=== PATIENT | male | born 1980 | race Caucasian/White ===

== ENCOUNTER 2018-06-12 14:58 | Inpatient (IN) | payer MEDICARE, OTHER ==
[2018-06-12] MEDS ORDERED: SODIUM CHLORIDE 0.9% 1,000 ML IV STA (15:30)
--- NOTE | 2018-06-12 15:40 | ED ---
General Adult HPI - General Chief complaint: Nausea/Vomiting/Diarrhea Stated complaint: diabetic/vomiting Time Seen by Provider: 06/12/18 15:26 Source: patient Mode of arrival: ambulatory Limitations: no limitations - History of Present Illness Initial comments: 37 year old male with history of diabetes type 1, HTN, renal disease presenting today for chief complaint of vomiting. He states he has not checked his sugar in 2 days. He states his symptoms are similar to when he has had DKA in the past. Patient states he has had cough congestion for the past 2-3 weeks. Denies recent fever within last week. States cough has been subsiding. He denies a chest pain shortness of breath. Patient denies diarrhea melena hematochezia, hematemesis, denies any significant abdominal pain. Remaining ROS (-), patient denies any back pain, numbness or tingling, dysuria or hematuria, constipation, headaches or visual changes, or any other complaints. Upon arrival pt appears well, did have episode of vomiting in waiting room. pt denies alcohol use. - Related Data Home Medications Medication Instructions Recorded Confirmed Unable To Assess [Unable to Assess] 09/07/15 09/07/15 Allergies Allergy/AdvReac Type Severity Reaction Status Date / Time Unable to Assess Allergy Verified 09/07/15 23:55 Review of Systems ROS Statement: Those systems with pertinent positive or pertinent negative responses have been documented in the HPI. ROS Other: All systems not noted in ROS Statement are negative. Past Medical History Past Medical History: Diabetes Mellitus, Hypertension, Renal Disease History of Any Multi-Drug Resistant Organisms: None Reported Past Surgical History: Joint Replacement, Orthopedic Surgery Additional Past Surgical History / Comment(s): spinal sx, pelvis sx Past Psychological History: No Psychological Hx Reported Smoking Status: Never smoker Past Alcohol Use History: None Reported Past Drug Use History: None Reported General Exam - General Exam Comments Initial Comments: General: The patient is awake and alert, in no distress Eye: Pupils are equal, round and reactive to light, extra-ocular movements are intact. No nystagmus. There is normal conjunctiva bilaterally. No signs of icterus. Ears, nose, mouth and throat: There are moist mucous membranes and no oral lesions. Neck: The neck is supple, there is no tenderness or JVD. Cardiovascular: There is a regular rate and rhythm. No murmur, rub or gallop is appreciated. Respiratory: Lungs are clear to auscultation, respirations are non-labored, breath sounds are equal. No wheezes, stridor, rales, or rhonchi. Gastrointestinal: Soft, non-distended, non-tender abdomen without masses or organomegaly noted. There is no rebound or guarding present. No CVA tenderness. Bowel sounds are unremarkable. Musculoskeletal: Normal ROM, no tenderness. Strength 5/5. Sensation intact. Pulses equal bilaterally 2+. Neurological: A&O x 3. CN II-XII intact, There are no obvious motor or sensory deficits. Coordination appears grossly intact. Speech is normal. Skin: Skin is warm and dry and no rashes or lesions are noted. Psychiatric: Cooperative, appropriate mood & affect, normal judgment. Limitations: no limitations Course Vital Signs 06/12/18 06/12/18 15:17 17:31 Temperature 98.3 F 99 F Pulse Rate 114 H 100 Respiratory 18 18 Rate Blood Pressure 202/115 177/93 O2 Sat by Pulse 98 99 Oximetry Medical Decision Making - Medical Decision Making 37yo female presenting today for chief complaint of vomiting. Patient states he is a type I diabetic insulin-dependent. Patient does not take a blood glucose of 2 days. Patient is concerned about DKA. Laboratory studies reveal elevated blood glucose, positive acetone and ketones in urine. No anion gap. Sugar >500. Pt given insulin bolus, placed on DKA protocol. Pt appears well. No signs of acute distress. I discussed case with attending provider Dr. Martinez who reviewed laboratory studies. He contacted admitting provider and was agreeable with patient care plan and admission. Discussed findings with patient patient is agreeable to admission, all questions were answered to the best mobility. Patient was transferred to the floor in stable condition. - Lab Data Result diagrams: 06/12/18 15:45 06/12/18 15:45 Lab Results 06/12/18 06/12/18 Range/Units 15:45 15:45 WBC 6.5 (3.8-10.6) k/uL RBC 4.24 L (4.30-5.90) m/uL Hgb 12.6 L (13.0-17.5) gm/dL Hct 38.1 L (39.0-53.0) % MCV 89.7 (80.0-100.0) fL MCH 29.8 (25.0-35.0) pg MCHC 33.2 (31.0-37.0) g/dL RDW 13.7 (11.5-15.5) % Plt Count 268 (150-450) k/uL Neutrophils % 81 % Lymphocytes % 13 % Monocytes % 4 % Eosinophils % 1 % Basophils % 1 % Neutrophils # 5.2 (1.3-7.7) k/uL Lymphocytes # 0.8 L (1.0-4.8) k/uL Monocytes # 0.3 (0-1.0) k/uL Eosinophils # 0.1 (0-0.7) k/uL Basophils # 0.0 (0-0.2) k/uL Sodium 133 L (137-145) mmol/L Potassium 4.7 (3.5-5.1) mmol/L Chloride 105 (98-107) mmol/L Carbon Dioxide 16 L (22-30) mmol/L Anion Gap 12 mmol/L BUN 41 H (9-20) mg/dL Creatinine 2.57 H (0.66-1.25) mg/dL Est GFR (CKD-EPI)AfAm 36 (>60 ml/min/1.73 sqM) Est GFR (CKD-EPI)NonAf 31 (>60 ml/min/1.73 sqM) Glucose 481 H (74-99) mg/dL Calcium 8.9 (8.4-10.2) mg/dL Phosphorus 4.3 (2.5-4.5) mg/dL Magnesium 1.8 (1.6-2.3) mg/dL Total Bilirubin 0.5 (0.2-1.3) mg/dL AST 16 L (17-59) U/L ALT 23 (21-72) U/L Alkaline Phosphatase 107 (38-126) U/L Total Protein 5.2 L (6.3-8.2) g/dL Albumin 2.7 L (3.5-5.0) g/dL Amylase 56 (30-110) U/L Lipase 46 (23-300) U/L Acetone, Qual Positive (Negative) Disposition Clinical Impression: DKA (diabetic ketoacidoses), Vomiting, Hyponatremia, ZEHRA (acute kidney injury), History of renal disease Disposition: ADMITTED IP TO THIS HOSP Condition: Stable Is patient prescribed a controlled substance at d/c from ED?: No Time of Disposition: 17:09 Decision to Admit Reason: Admit from EC Decision Date: 06/12/18 Decision Time: 17:09
[2018-06-12] MEDS ORDERED: ONDANSETRON 4 MG/2 ML VIAL IVP STA (15:59)
[2018-06-12 16:16] LABS: Basophils % (A) 1 %; Eosinophils # (A) 0.1 k/uL (0-0.7); Eosinophils % (A) 1 %; HCT 38.1 % (39.0-53.0); HGB 12.6 gm/dL (13.0-17.5); Lymphocytes # (A) 0.8 k/uL (1.0-4.8); Lymphocytes % (A) 13 %; MCH 29.8 pg (25.0-35.0); MCHC 33.2 g/dL (31.0-37.0); MCV 89.7 fL (80.0-100.0); Mean Platelet Volume 7.4; Monocytes # (A) 0.3 k/uL (0-1.0); Monocytes % (A) 4 %; Neutrophils # (A) 5.2 k/uL (1.3-7.7); Neutrophils % (A) 81 %; Platelet Count 268 k/uL (150-450); RBC 4.24 m/uL (4.30-5.90); RDW 13.7 % (11.5-15.5); WBC 6.5 k/uL (3.8-10.6)
--- NOTE | 2018-06-12 16:21 | XR ---
EXAMINATION TYPE: XR KUB DATE OF EXAM: 06/12/2018 COMPARISON: 01/05/2009 HISTORY: Nausea and vomiting TECHNIQUE: 2 views upright FINDINGS: Bowel gas pattern is normal. There is no sign of intestinal obstruction or pneumoperitoneum . Fecal pattern is normal. There is surgery at the sacrum and iliac crests. There are no pathologic c alcifications over the kidneys. Lung bases are clear. IMPRESSION: Nonacute abdomen.
[2018-06-12 16:26] LABS: ALT 23 U/L (21-72); AST 16 U/L (17-59); Albumin 2.7 g/dL (3.5-5.0); Alkaline Phosphatase 107 U/L (38-126); Amylase 56 U/L (30-110); Anion Gap 12 mmol/L; Blood Urea Nitrogen 41 mg/dL (9-20); Calcium 8.9 mg/dL (8.4-10.2); Carbon Dioxide 16 mmol/L (22-30); Chloride 105 mmol/L (98-107); Glucose 481 mg/dL (74-99); Lipase 46 U/L (23-300); Magnesium 1.8 mg/dL (1.6-2.3); Phosphorus 4.3 mg/dL (2.5-4.5); Potassium 4.7 mmol/L (3.5-5.1); Sodium 133 mmol/L (137-145); Total Bilirubin 0.5 mg/dL (0.2-1.3); Total Protein 5.2 g/dL (6.3-8.2)
[2018-06-12] MEDS ORDERED: INSULIN REGULAR BOLUS (FROM DRIP BAG) IV ONE (16:28)
[2018-06-12] MEDS ORDERED: SODIUM CHLORIDE 0.9% 1,000 ML IV SCH (16:30)
[2018-06-12] MEDS ORDERED: NALOXONE 0.4 MG/ML 1 ML VIAL IV PRN (16:53)
[2018-06-12] MEDS ORDERED: HYDROcodone/APAP 5-325MG 1 EACH TAB PO PRN (16:53)
[2018-06-12] MEDS ORDERED: ACETAMINOPHEN TAB 325 MG TAB PO PRN (16:53)
[2018-06-12 17:00] LABS: Amorphous Sediment,Urine Rare /hpf; Appearance,Urine Clear (Clear); Bacteria,Urine Rare /hpf; Bilirubin,Urine Negative (Negative); Blood,Urine Small (Negative); Color,Urine Light Yellow; Glucose,Urine (UA) 4+ (Negative); Granular Casts,Urine 4 /lpf (0); Hyaline Casts,Urine 31 /lpf (0-2); Ketones,Urine 1+ (Negative); Leukocyte Esterase,Urine Negative (Negative); Mucus,Urine Rare /hpf; Nitrite,Urine Negative (Negative); Protein,Urine 3+ (Negative); RBC,Urine 2 /hpf (0-5); Specific Gravity,Urine 1.018 (1.001-1.035); Squamous Epithelial Cell,Urine <1 /hpf (0-4); Urobilinogen,Urine <2.0 mg/dL (<2.0); WBC,Urine 1 /hpf (0-5)
[2018-06-12] MEDS: INSULIN REGULAR 100 UNIT in SODIUM CHLORIDE 0.9% 100 ML IV SCH ×2 (17:03→19:04)
[2018-06-12 17:08] LABS: VBG PH 7.42 (7.31-7.41)
[2018-06-12] MEDS ORDERED: 0.45% NACL WITH KCL 20 MEQ/L 1,000 ML IV SCH (17:30)
[2018-06-12 18:13] LABS: Glucose,Whole Blood 282 mg/dL (75-99)
--- NOTE | 2018-06-12 18:59 | P.HPIM ---
History of Present Illness H&P Date: 06/12/18 Chief Complaint: Nausea and vomiting 37-year-old male with PMH of type 1 diabetes mellitus on insulin, CKG, hypertension, hyperlipidemia presents the ED for nausea and vomiting. Patient reports feeling unwell over the past 1 month. He reports that he wakes up with nausea on a daily basis, which improved throughout the day. He does endorse occasional nonbilious and nonbloody vomiting. Patient also reports cough productive of yellow sputum along with rhinorrhea that has been ongoing for the past 2-1/2 weeks. Patient reports that his cough and nausea, vomiting has been progressively getting worse. Yesterday he took DayQuil, some cough syrup and 2 Nyquils prior to going to bed. Patient reports waking up with a hacking cough and with multiple episodes of nausea and vomiting which prompted him to come to the ED. Of note, patient reports being diagnosed with type 1 diabetes mellitus since the age of 16. He has been on Toujeo 40 units in the morning and endorses c ompliance. Patient reports having a diet that is unhealthy, full of junk food and fried fish. Patient reports being released from group home one year ago, he was told that he has kidney disease with 50% renal function. Patient denies any headache, fever or chills, chest pain, palpitations, changes in urination or bowel habits. He does report a decreased appetite and intermittent lower extremity swelling that in the is alleviated with lower extremity elevation. In the ED, CBC showed anemia with hemoglobin of 12.6. VBG showed pH of 7.42. CMP showed a sodium of 133, bicarbonate of 16, BUN of 41 and creatinine of 2.57. Blood glucose was 481. Urinalysis showed 3+ protein, 4+ glucose, 1+ ketone. He was acetone positive. Patient is admitted for DKA. Review of Systems All other review of systems reviewed and is negative except for what is present in the HPI. All systems: negative Past Medical History Past Medical History: Diabetes Mellitus, Hypertension, Renal Disease History of Any Multi-Drug Resistant Organisms: None Reported Past Surgical History: Joint Replacement, Orthopedic Surgery Additional Past Surgical History / Comment(s): spinal sx, pelvis sx Past Anesthesia/Blood Transfusion Reactions: No Reported Reaction Past Psychological History: No Psychological Hx Reported Smoking Status: Never smoker Past Alcohol Use History: None Reported Past Drug Use History: None Reported - Past Family History Father History Unknown: Yes Mother History Unknown: Yes Medications and Allergies Home Medications Medication Instructions Recorded Confirmed Type Unable To Assess [Unable to Assess] 09/07/15 09/07/15 History Allergies Allergy/AdvReac Type Severity Reaction Status Date / Time adhesive Allergy Intermediate Rash/Hives Verified 06/12/18 18:17 Physical Exam Vitals: Vital Signs Temp Pulse Pulse Resp BP BP Pulse Ox 06/12/18 17:44 97.5 F L 96 20 217/118 99 06/12/18 17:31 99 F 100 18 177/93 99 06/12/18 15:17 98.3 F 114 H 18 202/115 98 Intake and Output 06/12/18 06/12/18 06/12/18 06:59 14:59 22:59 Intake Total 211.255 Balance 211.255 Intake: IV 200 Sodium Chloride 0.9% 1, 200 000 ml @ 200 mls/hr IV . Q5H JENNIFER Rx#:[id number] Intake, IV Titration 11.255 Amount Insulin Regular 100 unit 11.255 In Sodium Chloride 0.9% 100 ml @ 0.1 UNITS/KG/HR 10.079 mls/hr IV .Q10H2M JENNIFER Rx#:[id number] Other: Weight 99.79 kg General: [non toxic], [no distress], [appears at stated age] Derm: [warm], [dry] Head: [atraumatic], [normocephalic], [symmetric] Eyes: [EOMI], [no lid lag], [anicteric sclera] Mouth: [no lip lesion], [mucus membranes moist] Cardiovascular: [S1S2 reg], [tachycardia], [positive posterior tibial pulse bilateral], Lungs: [CTA bilateral], [no rhonchi, no rales] , [no accessory muscle use] Abdominal: [soft], [ nontender to palpation], [no guarding], [no appreciable organomegaly] Ext: [no gross muscle atrophy], [1+ lower extremity edema], [no contractures] Neuro: [ CN II-XI grossly intact], [no focal neuro deficits] Psych: [Alert], [oriented], [appropriate affect] Results CBC & Chem 7: 06/12/18 15:45 06/12/18 15:45 Labs: Abnormal Lab Results - Last 24 Hours (Table) 06/12/18 06/12/18 06/12/18 Range/Units 15:45 15:45 16:50 RBC 4.24 L (4.30-5.90) m/uL Hgb 12.6 L (13.0-17.5) gm/dL Hct 38.1 L (39.0-53.0) % Lymphocytes # 0.8 L (1.0-4.8) k/uL VBG pH (7.31-7.41) VBG pCO2 (37-51) mmHg VBG HCO3 (24-28) mmol/L Sodium 133 L (137-145) mmol/L Carbon Dioxide 16 L (22-30) mmol/L BUN 41 H (9-20) mg/dL Creatinine 2.57 H (0.66-1.25) mg/dL Glucose 481 H (74-99) mg/dL POC Glucose (mg/dL) (75-99) mg/dL AST 16 L (17-59) U/L Total Protein 5.2 L (6.3-8.2) g/dL Albumin 2.7 L (3.5-5.0) g/dL Urine Protein 3+ H (Negative) Urine Glucose (UA) 4+ H (Negative) Urine Ketones 1+ H (Negative) Urine Blood Small H (Negative) Amorphous Sediment Rare H (None) /hpf Urine Bacteria Rare H (None) /hpf Hyaline Casts 31 H (0-2) /lpf Urine Mucus Rare H (None) /hpf 06/12/18 06/12/18 Range/Units 17:00 18:08 RBC (4.30-5.90) m/uL Hgb (13.0-17.5) gm/dL Hct (39.0-53.0) % Lymphocytes # (1.0-4.8) k/uL VBG pH 7.42 H (7.31-7.41) VBG pCO2 23 L (37-51) mmHg VBG HCO3 15 L (24-28) mmol/L Sodium (137-145) mmol/L Carbon Dioxide (22-30) mmol/L BUN (9-20) mg/dL Creatinine (0.66-1.25) mg/dL Glucose (74-99) mg/dL POC Glucose (mg/dL) 282 H (75-99) mg/dL AST (17-59) U/L Total Protein (6.3-8.2) g/dL Albumin (3.5-5.0) g/dL Urine Protein (Negative) Urine Glucose (UA) (Negative) Urine Ketones (Negative) Urine Blood (Negative) Amorphous Sediment (None) /hpf Urine Bacteria (None) /hpf Hyaline Casts (0-2) /lpf Urine Mucus (None) /hpf Thrombosis Risk Factor Assmnt - Choose All That Apply Any of the Below Risk Factors Present?: No Other Risk Factors: No Other congenital or acquired thrombophilia - If yes, enter type in comment: No Thrombosis Risk Factor Assessment Level: Very Low Risk Assessment and Plan Assessment: Assessment and Plan DKA Cough Acute kidney injury on chronic kidney disease Hypertension DVT and GI prophylaxis Probably due to medication noncompliance. Normal anion gap with bicarbonate of 16. Blood glucose 481. Given bolus of normal saline in the ED. Start insulin drip. Change fluids to half-normal saline with added potassium at 200 mL/h. Zofran for nausea or vomiting. Start Protonix IV daily. Hourly Accu-Cheks. Hypoglycemic precautions. BMP every 4 hours. Will change fluids to D5 half- normal saline when blood glucose nears 200. Transitioned to subcutaneous insulin when HCO3 is within normal limits. Follow A1c. Acute bronchitis versus pneumonia. Patient afebrile with no leukocytosis. Follow chest x-ray. BUN 41, creatinine 2.57. Patient previously been advised of CKD. This is likely secondary to uncontrolled diabetes and hypertension. Continue IVF at 200 mL/h. Daily BMP. Avoid nephrotoxins. Follow nephrology consult. BP 217/118. Continue Cardizem, Coreg. Monitor vitals, adjust medications as necessary. SCD boots. Protonix IV.
[2018-06-12 19:23] LABS: Glucose,Whole Blood 199 mg/dL (75-99)
[2018-06-12] MEDS: DILTIAZEM CD 120 MG CAP.ER.24H PO SCH (19:25)
[2018-06-12] MEDS: CARVEDILOL 6.25 MG TAB PO SCH (19:25)
--- NOTE | 2018-06-12 19:39 | XR ---
EXAMINATION TYPE: XR chest 1V DATE OF EXAM: 06/12/2018 COMPARISON: 09/08/2015 HISTORY: Cough TECHNIQUE: Single frontal view of the chest is obtained. FINDINGS: Heart and mediastinum are normal. Lungs are clear. Diaphragm is normal. Bony thorax appear s normal. IMPRESSION: Normal chest. No change.
[2018-06-12 20:03] LABS: Glucose,Whole Blood 145 mg/dL (75-99)
[2018-06-12] MEDS: D5-0.45% NACL WITH KCL 20MEQ/L 1,000 ML IV SCH (20:08)
[2018-06-12 20:19] LABS: Potassium 3.7 mmol/L (3.5-5.1)
[2018-06-12 21:20] LABS: Glucose,Whole Blood 109 mg/dL (75-99)
[2018-06-12 22:19] LABS: Glucose,Whole Blood 144 mg/dL (75-99)
[2018-06-12 22:59] LABS: Glucose,Whole Blood 134 mg/dL (75-99)
[2018-06-13 00:14] LABS: Glucose,Whole Blood 126 mg/dL (75-99)
[2018-06-13 00:47] LABS: Potassium 4.2 mmol/L (3.5-5.1)
[2018-06-13 01:12] LABS: Glucose,Whole Blood 119 mg/dL (75-99)
[2018-06-13] MEDS: guaiFENesin SYRUP 100MG/5ML 200 MG/10 ML CUP PO PRN ×2 (01:16→20:31)
[2018-06-13 02:10] LABS: Glucose,Whole Blood 128 mg/dL (75-99)
[2018-06-13] MEDS ORDERED: hydrALAZINE HCL 50 MG TAB PO STA ×2 (02:27→06:10)
[2018-06-13] MEDS: ONDANSETRON 4 MG/2 ML VIAL IVP PRN ×2 (02:49→09:32)
[2018-06-13] MEDS: D5-0.45% NACL WITH KCL 20MEQ/L 1,000 ML IV SCH (03:23)
[2018-06-13 06:15] LABS: Glucose,Whole Blood 100 mg/dL (75-99)
[2018-06-13] MEDS: INSULIN ASPART (NovoLOG) 100 UNIT/ML VIAL SQ SCH ×3 (06:54→16:59)
[2018-06-13] MEDS: CARVEDILOL 6.25 MG TAB PO SCH ×2 (06:59→17:14)
[2018-06-13] MEDS ORDERED: DEXTROSE 5%-0.9% NACL 1,000 ML IV SCH (08:30)
[2018-06-13] MEDS ORDERED: PANTOPRAZOLE 40 MG/10 ML VIAL IVP SCH (09:00)
[2018-06-13] MEDS: DILTIAZEM CD 120 MG CAP.ER.24H PO SCH (09:32)
[2018-06-13] MEDS: INSULIN DETEMIR (LEVEMIR) 100 UNIT/ML SYR SQ SCH (09:32)
--- NOTE | 2018-06-13 09:38 | P.NPCON ---
History of Present Illness - Reason for Consult acute renal failure, chronic renal failure - History of Present Illness Reason for consultation: Acute kidney injury on chronic kidney disease History of present illness: Patient is a 37-year-old male seen in renal consultation for acute kidney injury on chronic kidney disease. Unclear as to what his baseline function is. Creatinine in August 2015 was 1.8 and has been stable near 2.3 to 2.5 this admission. Patient presented to the hospital with nausea and vomiting going on for about 5 days prior to admission. Patient states he was diagnosed with diab etes 22 years ago. He has been taking insulin however does not monitor his blood sugars at home. On admission his blood sugar was over 400 as well as serum acetone being positive. Patient received IV fluids as well as insulin drip. He is currently off IV fluids. His blood sugar this morning was 115. He denies chest pain or shortness of breath. Hemodynamically stable. No cough. Good urine output. No hematuria or dysuria. Denies use of nonsteroidals. Patient's grandmother has chronic kidney disease stage IV and is being prepared for hemodialysis. 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 Vital signs are stable. General: The patient appeared well nourished and normally developed. HEENT: Head exam is unremarkable. Neck is without jugular venous distension. LUNGS: Lungs are clear to auscultation and percussion. Breath sounds decreased. HEART: Rate and Rhythm are regular. First and second heart sounds normal. No murmurs, rubs or gallops. ABDOMEN: Abdominal exam reveals normal bowel sounds. Non-tender and non- distended. No evidence of peritonitis. EXTREMITITES: No clubbing, cyanosis, or edema. Past Medical History Past Medical History: Diabetes Mellitus, Hypertension, Renal Disease History of Any Multi-Drug Resistant Organisms: None Reported Past Surgical History: Joint Replacement, Orthopedic Surgery Additional Past Surgical History / Comment(s): spinal sx, pelvis sx Past Anesthesia/Blood Transfusion Reactions: No Reported Reaction Past Psychological History: No Psychological Hx Reported Smoking Status: Never smoker Past Alcohol Use History: None Reported Past Drug Use History: None Reported - Past Family History Father History Unknown: Yes Mother History Unknown: Yes Medications and Allergies Home Medications Medication Instructions Recorded Confirmed Type Unable To Assess [Unable to Assess] 09/07/15 09/07/15 History Allergies Allergy/AdvReac Type Severity Reaction Status Date / Time adhesive Allergy Intermediate Rash/Hives Verified 06/12/18 18:17 Physical Exam Vitals: Vital Signs Temp Pulse Pulse Resp BP BP Pulse Ox 06/13/18 08:00 99 20 06/13/18 07:55 98.3 F 99 20 162/93 95 06/13/18 07:01 155/108 06/13/18 04:00 98.2 F 98 20 198/100 98 06/13/18 00:00 98.7 F 99 20 99 06/12/18 20:00 98 F 98 20 179/95 99 06/12/18 17:44 97.5 F L 96 20 217/118 99 06/12/18 17:31 99 F 100 18 177/93 99 06/12/18 15:17 98.3 F 114 H 18 202/115 98 Intake and Output 06/12/18 06/13/18 06/13/18 22:59 06:59 14:59 Intake Total 440.663 252.979 200 Balance 440.663 252.979 200 Intake: IV 200 Sodium Chloride 0.9% 1, 200 000 ml @ 200 mls/hr IV . Q5H JENNIFER Rx#:[id number] Intake, IV Titration 40.663 2.979 Amount Insulin Regular 100 unit 40.663 2.979 In Sodium Chloride 0.9% 100 ml @ 0.1 UNITS/KG/HR 10.079 mls/hr IV .Q10H2M JENNIFER Rx#:[id number] Oral 200 250 200 Other: # Voids 2 2 Weight 99.79 kg Results - Lab Results Most recent lab results Calcium 8.9 mg/dL (8.4-10.2) 06/12/18 15:45 Phosphorus 3.1 mg/dL (2.5-4.5) 06/13/18 00:07 Magnesium 1.8 mg/dL (1.6-2.3) 06/12/18 15:45 06/12/18 15:45 06/13/18 00:07 Assessment and Plan Plan: Assessment: 1. Chronic kidney disease stage III secondary to diabetic kidney disease. Creatinine in August 2015 was 1.8 and has been in the range of 2.3-2.5 this admission. ? ATN versus progression of underlying chronic kidney disease. 2. DKA. Resolved. 3. Insulin-dependent diabetes mellitus. Diagnosed over 20 years ago. 4. Hypertension with chronic kidney disease. 5. Metabolic acidosis secondary to chronic kidney disease. Plan: Encourage oral intake. Add oral sodium bicarbonate. Check renal ultrasound. Add amlodipine 5 mg daily. He will benefit from NICK inhibition once GFR stabilizes. Strongly advised patient to follow-up as an outpatient for chronic kidney disease care. Continue to monitor renal function and urine output. Thank you for the consultation. I will continue to follow the patient with you during his hospital stay.
[2018-06-13 10:28] LABS: Hemoglobin A1C 9.5 % (4.0-6.0)
[2018-06-13 11:06] VITALS: BMI 30.7
--- NOTE | 2018-06-13 11:57 | US ---
EXAMINATION TYPE: US kidneys/renal and bladder DATE OF EXAM: 06/13/2018 COMPARISON: CT CLINICAL HISTORY: earl. Patient stated is in fro diabetic ketoacidosis EXAM MEASUREMENTS: Right Kidney: 11.0 x 5.6 x 4.9 cm Left Kidney: 11.5 x 6.0 x 6.4 cm Post Void Residual Volume: not assessed on inpatient Right Kidney: No hydronephrosis or masses seen Left Kidney: No hydronephrosis or masses seen Bladder: wnl Bilateral Jets seen: yes Consider some urinary bladder wall thickening. Correlate for cystitis. IMPRESSION: Normal bilateral kidneys. 2. Some wall thickening of the urinary bladder is not excluded. Consider possibility of cystitis.
[2018-06-13 12:19] LABS: Glucose,Whole Blood 181 mg/dL (75-99)
[2018-06-13] MEDS: amLODIPine 5 MG TAB PO SCH (12:36)
[2018-06-13] MEDS: SODIUM BICARBONATE TAB 650 MG TAB PO SCH ×2 (12:36→20:31)
[2018-06-13] MEDS ORDERED: METOCLOPRAMIDE 5 MG/ML 2 ML VIAL IVP PRN (14:19)
[2018-06-13] MEDS ORDERED: METOCLOPRAMIDE 5 MG/ML 2 ML VIAL IVP STA (14:19)
--- NOTE | 2018-06-13 14:28 | P.PN ---
Subjective Progress Note Date: 06/13/18 Principal diagnosis: Uncontrolled diabetes Patient was seen and examined. No acute events overnight. Patient continues to report nausea but no vomiting. Patient states that he has an upset stomach. He denies any chest pain, shortness of breath or palpitations. Patient reports there are times when he eats he breaks out into sweats. Objective - Vital Signs Vital signs: Vital Signs Temp 98.2 F 06/13/18 12:00 Pulse 89 06/13/18 12:00 Resp 20 06/13/18 12:00 BP 170/88 06/13/18 12:00 Pulse Ox 98 06/13/18 12:00 Intake & Output 06/12/18 06/13/18 06/13/18 18:59 06:59 18:59 Intake Total 411.255 282.387 200 Balance 411.255 282.387 200 Weight 99.79 kg 99.79 kg Intake: IV 200 Sodium Chloride 0.9% 1, 200 000 ml @ 200 mls/hr IV . Q5H JENNIFER Rx#:[id number] Intake, IV Titration 11.255 32.387 Amount Insulin Regular 100 unit 11.255 32.387 In Sodium Chloride 0.9% 100 ml @ 0.1 UNITS/KG/HR 10.079 mls/hr IV .Q10H2M JENNIFER Rx#:[id number] Oral 200 250 200 Other: # Voids 2 2 - Exam General: [non toxic], [no distress], [appears at stated age] Derm: [warm], [dry] Head: [atraumatic], [normocephalic], [symmetric] Eyes: [EOMI], [no lid lag], [anicteric sclera] Mouth: [no lip lesion], [mucus membranes moist] Cardiovascular: [S1S2 reg], [regular rate], [positive posterior tibial pulse bilateral], Lungs: [CTA bilateral], [no rhonchi, no rales] , [no accessory muscle use] Abdominal: [soft], [mild tenderness to palpation of epigastric area without rebound], [no guarding], [no appreciable organomegaly] Ext: [no gross muscle atrophy], [no lower extremity edema], [no contractures] Neuro: [no focal neuro deficits] Psych: [Alert], [oriented], [appropriate affect] - Labs CBC & Chem 7: 06/12/18 15:45 06/13/18 00:07 Labs: Abnormal Lab Results - Last 24 Hours (Table) 06/12/18 06/12/18 06/12/18 Range/Units 15:45 15:45 16:50 RBC 4.24 L (4.30-5.90) m/uL Hgb 12.6 L (13.0-17.5) gm/dL Hct 38.1 L (39.0-53.0) % Lymphocytes # 0.8 L (1.0-4.8) k/uL VBG pH (7.31-7.41) VBG pCO2 (37-51) mmHg VBG HCO3 (24-28) mmol/L Sodium 133 L (137-145) mmol/L Chloride (98-107) mmol/L Carbon Dioxide 16 L (22-30) mmol/L BUN 41 H (9-20) mg/dL Creatinine 2.57 H (0.66-1.25) mg/dL Glucose 481 H (74-99) mg/dL POC Glucose (mg/dL) (75-99) mg/dL Hemoglobin A1c (4.0-6.0) % Phosphorus (2.5-4.5) mg/dL AST 16 L (17-59) U/L Total Protein 5.2 L (6.3-8.2) g/dL Albumin 2.7 L (3.5-5.0) g/dL Urine Protein 3+ H (Negative) Urine Glucose (UA) 4+ H (Negative) Urine Ketones 1+ H (Negative) Urine Blood Small H (Negative) Amorphous Sediment Rare H (None) /hpf Urine Bacteria Rare H (None) /hpf Hyaline Casts 31 H (0-2) /lpf Urine Mucus Rare H (None) /hpf 06/12/18 06/12/18 06/12/18 Range/Units 17:00 18:08 19:03 RBC (4.30-5.90) m/uL Hgb (13.0-17.5) gm/dL Hct (39.0-53.0) % Lymphocytes # (1.0-4.8) k/uL VBG pH 7.42 H (7.31-7.41) VBG pCO2 23 L (37-51) mmHg VBG HCO3 15 L (24-28) mmol/L Sodium (137-145) mmol/L Chloride (98-107) mmol/L Carbon Dioxide (22-30) mmol/L BUN (9-20) mg/dL Creatinine (0.66-1.25) mg/dL Glucose (74-99) mg/dL POC Glucose (mg/dL) 282 H 199 H (75-99) mg/dL Hemoglobin A1c (4.0-6.0) % Phosphorus (2.5-4.5) mg/dL AST (17-59) U/L Total Protein (6.3-8.2) g/dL Albumin (3.5-5.0) g/dL Urine Protein (Negative) Urine Glucose (UA) (Negative) Urine Ketones (Negative) Urine Blood (Negative) Amorphous Sediment (None) /hpf Urine Bacteria (None) /hpf Hyaline Casts (0-2) /lpf Urine Mucus (None) /hpf 06/12/18 06/12/18 06/12/18 Range/Units 19:46 19:46 19:46 RBC (4.30-5.90) m/uL Hgb (13.0-17.5) gm/dL Hct (39.0-53.0) % Lymphocytes # (1.0-4.8) k/uL VBG pH (7.31-7.41) VBG pCO2 (37-51) mmHg VBG HCO3 (24-28) mmol/L Sodium (137-145) mmol/L Chloride 111 H (98-107) mmol/L Carbon Dioxide 21 L (22-30) mmol/L BUN 40 H (9-20) mg/dL Creatinine 2.38 H (0.66-1.25) mg/dL Glucose 149 H (74-99) mg/dL POC Glucose (mg/dL) (75-99) mg/dL Hemoglobin A1c 9.5 H (4.0-6.0) % Phosphorus 2.4 L (2.5-4.5) mg/dL AST (17-59) U/L Total Protein (6.3-8.2) g/dL Albumin (3.5-5.0) g/dL Urine Protein (Negative) Urine Glucose (UA) (Negative) Urine Ketones (Negative) Urine Blood (Negative) Amorphous Sediment (None) /hpf Urine Bacteria (None) /hpf Hyaline Casts (0-2) /lpf Urine Mucus (None) /hpf 06/12/18 06/12/18 06/12/18 Range/Units 20:01 21:00 22:00 RBC (4.30-5.90) m/uL Hgb (13.0-17.5) gm/dL Hct (39.0-53.0) % Lymphocytes # (1.0-4.8) k/uL VBG pH (7.31-7.41) VBG pCO2 (37-51) mmHg VBG HCO3 (24-28) mmol/L Sodium (137-145) mmol/L Chloride (98-107) mmol/L Carbon Dioxide (22-30) mmol/L BUN (9-20) mg/dL Creatinine (0.66-1.25) mg/dL Glucose (74-99) mg/dL POC Glucose (mg/dL) 145 H 109 H 144 H (75-99) mg/dL Hemoglobin A1c (4.0-6.0) % Phosphorus (2.5-4.5) mg/dL AST (17-59) U/L Total Protein (6.3-8.2) g/dL Albumin (3.5-5.0) g/dL Urine Protein (Negative) Urine Glucose (UA) (Negative) Urine Ketones (Negative) Urine Blood (Negative) Amorphous Sediment (None) /hpf Urine Bacteria (None) /hpf Hyaline Casts (0-2) /lpf Urine Mucus (None) /hpf 06/12/18 06/13/18 06/13/18 Range/Units 22:58 00:02 00:07 RBC (4.30-5.90) m/uL Hgb (13.0-17.5) gm/dL Hct (39.0-53.0) % Lymphocytes # (1.0-4.8) k/uL VBG pH (7.31-7.41) VBG pCO2 (37-51) mmHg VBG HCO3 (24-28) mmol/L Sodium 135 L (137-145) mmol/L Chloride 113 H (98-107) mmol/L Carbon Dioxide 19 L (22-30) mmol/L BUN 41 H (9-20) mg/dL Creatinine 2.53 H (0.66-1.25) mg/dL Glucose 115 H (74-99) mg/dL POC Glucose (mg/dL) 134 H 126 H (75-99) mg/dL Hemoglobin A1c (4.0-6.0) % Phosphorus (2.5-4.5) mg/dL AST (17-59) U/L Total Protein (6.3-8.2) g/dL Albumin (3.5-5.0) g/dL Urine Protein (Negative) Urine Glucose (UA) (Negative) Urine Ketones (Negative) Urine Blood (Negative) Amorphous Sediment (None) /hpf Urine Bacteria (None) /hpf Hyaline Casts (0-2) /lpf Urine Mucus (None) /hpf 06/13/18 06/13/18 06/13/18 Range/Units 01:00 02:08 05:55 RBC (4.30-5.90) m/uL Hgb (13.0-17.5) gm/dL Hct (39.0-53.0) % Lymphocytes # (1.0-4.8) k/uL VBG pH (7.31-7.41) VBG pCO2 (37-51) mmHg VBG HCO3 (24-28) mmol/L Sodium (137-145) mmol/L Chloride (98-107) mmol/L Carbon Dioxide (22-30) mmol/L BUN (9-20) mg/dL Creatinine (0.66-1.25) mg/dL Glucose (74-99) mg/dL POC Glucose (mg/dL) 119 H 128 H 100 H (75-99) mg/dL Hemoglobin A1c (4.0-6.0) % Phosphorus (2.5-4.5) mg/dL AST (17-59) U/L Total Protein (6.3-8.2) g/dL Albumin (3.5-5.0) g/dL Urine Protein (Negative) Urine Glucose (UA) (Negative) Urine Ketones (Negative) Urine Blood (Negative) Amorphous Sediment (None) /hpf Urine Bacteria (None) /hpf Hyaline Casts (0-2) /lpf Urine Mucus (None) /hpf 06/13/18 Range/Units 11:41 RBC (4.30-5.90) m/uL Hgb (13.0-17.5) gm/dL Hct (39.0-53.0) % Lymphocytes # (1.0-4.8) k/uL VBG pH (7.31-7.41) VBG pCO2 (37-51) mmHg VBG HCO3 (24-28) mmol/L Sodium (137-145) mmol/L Chloride (98-107) mmol/L Carbon Dioxide (22-30) mmol/L BUN (9-20) mg/dL Creatinine (0.66-1.25) mg/dL Glucose (74-99) mg/dL POC Glucose (mg/dL) 181 H (75-99) mg/dL Hemoglobin A1c (4.0-6.0) % Phosphorus (2.5-4.5) mg/dL AST (17-59) U/L Total Protein (6.3-8.2) g/dL Albumin (3.5-5.0) g/dL Urine Protein (Negative) Urine Glucose (UA) (Negative) Urine Ketones (Negative) Urine Blood (Negative) Amorphous Sediment (None) /hpf Urine Bacteria (None) /hpf Hyaline Casts (0-2) /lpf Urine Mucus (None) /hpf Assessment and Plan Assessment: Assessment and Plan Nausea Hyperglycemia with uncontrolled diabetes Hyperchloremic metabolic acidosis Cough Acute kidney injury on chronic kidney disease Hypertension DVT and GI prophylaxis Possibility gastroparesis with GERD. Add Maalox and Reglan. Continue Zofran. Continue Protonix. Probably due to medication noncompliance. Normal anion gap with bicarbonate of 16 on admission. Blood glucose 481 on admission. Given bolus of normal saline in the ED. Insulin drip discontinued. Patient started on Levemir 10 units in the morning along with insulin sliding scale. Hourly Accu-Cheks. Hypoglycemic precautions. Follow A1c. Chloride 113, bicarbonate 19. Likely secondary to chronic kidney disease. Nephrology added sodium bicarb. Daily BMP. Acute bronchitis versus pneumonia. Patient afebrile with no leukocytosis. Chest x-ray negative. Continue Mucinex. Creatinine 2.53. Patient previously been advised of CKD. This is likely secondary to uncontrolled diabetes and hypertension. Kidney ultrasound shows no obstruction. Daily BMP. Avoid nephrotoxins. Nephrology consulted, recommends addition of sodium bicarb. Follow nephrology consult. BP 170/88. Continue Cardizem, Coreg. Will add SHA inhibitor when creatinine improves. Monitor vitals, adjust medications as necessary. SCD boots. Protonix IV. Prescription sent for glucometer. Will monitor insulin requirements over the next 24 hours. Anticipate DC tomorrow.
[2018-06-13 16:57] LABS: Glucose,Whole Blood 77 mg/dL (75-99)
[2018-06-13] MEDS: MAG HYDROX/AL HYDROX/SIMETH 30 ML CUP PO SCH (17:14)
[2018-06-13 21:18] LABS: Glucose,Whole Blood 160 mg/dL (75-99)
[2018-06-14] MEDS: ONDANSETRON 4 MG/2 ML VIAL IVP PRN ×2 (01:19→08:42)
[2018-06-14 05:56] LABS: Glucose,Whole Blood 227 mg/dL (75-99)
[2018-06-14] MEDS: guaiFENesin SYRUP 100MG/5ML 200 MG/10 ML CUP PO PRN ×2 (07:05→22:25)
[2018-06-14] MEDS: PANTOPRAZOLE 40 MG TABLET PO SCH (07:05)
[2018-06-14] MEDS: CARVEDILOL 6.25 MG TAB PO SCH ×2 (07:05→17:49)
[2018-06-14] MEDS: MAG HYDROX/AL HYDROX/SIMETH 30 ML CUP PO SCH ×3 (07:05→17:38)
[2018-06-14] MEDS: INSULIN DETEMIR (LEVEMIR) 100 UNIT/ML SYR SQ SCH (07:06)
[2018-06-14] MEDS: INSULIN ASPART (NovoLOG) 100 UNIT/ML VIAL SQ SCH ×4 (07:35→22:25)
[2018-06-14 07:38] LABS: Calcium 8.4 mg/dL (8.4-10.2); Magnesium 1.7 mg/dL (1.6-2.3); Potassium 4.4 mmol/L (3.5-5.1)
[2018-06-14] MEDS: SODIUM BICARBONATE TAB 650 MG TAB PO SCH ×2 (08:42→21:34)
[2018-06-14] MEDS: DILTIAZEM CD 120 MG CAP.ER.24H PO SCH (08:42)
[2018-06-14] MEDS: amLODIPine 5 MG TAB PO SCH (08:42)
--- NOTE | 2018-06-14 10:52 | P.PN ---
Subjective Patient is seen in follow-up for acute kidney injury on chronic kidney disease. Unclear as to what his baseline renal function is. Creatinine in August 2015 was 1.8. This admission is been stable in the range of 2.3-2.5. Patient presented with DKA. Blood sugars are now better controlled. Oral intake is good. He had an episode of vomiting last night and again this morning. Blood pressures have been high. Urine output is good. Vital signs are stable. General: The patient appeared well nourished and normally developed. HEENT: Head exam is unremarkable. Neck is without jugular venous distension. LUNGS: Lungs are clear to auscultation and percussion. Breath sounds decreased. HEART: Rate and Rhythm are regular. First and second heart sounds normal. No murmurs, rubs or gallops. ABDOMEN: Abdominal exam reveals normal bowel sounds. Non-tender and non- distended. No evidence of peritonitis. EXTREMITITES: No clubbing, cyanosis, or edema. Objective - Vital Signs Vital signs: Vital Signs Temp 98.4 F 06/14/18 08:00 Pulse 98 06/14/18 08:00 Resp 20 06/14/18 08:00 BP 172/92 06/14/18 08:00 Pulse Ox 98 06/14/18 08:00 Intake & Output 06/13/18 06/14/18 06/14/18 18:59 06:59 18:59 Intake Total 420 250 400 Output Total 500 Balance -80 250 400 Weight 99.79 kg 100.2 kg Intake: IV 20 Invasive Line 1 20 Oral 400 250 400 Output: Urine 500 Other: # Voids 2 2 - Labs CBC & Chem 7: 06/12/18 15:45 06/14/18 06:46 Labs: Abnormal Lab Results - Last 24 Hours (Table) 06/13/18 06/13/18 06/14/18 Range/Units 11:41 21:16 05:55 Sodium (137-145) mmol/L Chloride (98-107) mmol/L BUN (9-20) mg/dL Creatinine (0.66-1.25) mg/dL Glucose (74-99) mg/dL POC Glucose (mg/dL) 181 H 160 H 227 H (75-99) mg/dL 06/14/18 Range/Units 06:46 Sodium 135 L (137-145) mmol/L Chloride 110 H (98-107) mmol/L BUN 28 H (9-20) mg/dL Creatinine 2.52 H (0.66-1.25) mg/dL Glucose 226 H (74-99) mg/dL POC Glucose (mg/dL) (75-99) mg/dL Assessment and Plan Plan: Assessment: 1. Chronic kidney disease stage III secondary to diabetic kidney disease. Creatinine in August 2015 was 1.8 and has been in the range of 2.3-2.5 this admission. ? ATN versus progression of underlying chronic kidney disease. No evidence of hydronephrosis noted on kidney ultrasound. 2. DKA. Resolved. 3. Insulin-dependent diabetes mellitus. Diagnosed over 20 years ago. 4. Hypertension with chronic kidney disease. Blood pressures high. 5. Metabolic acidosis secondary to chronic kidney disease. Better. Maintained on oral sodium bicarbonate. Plan: Encourage oral intake. Add hydralazine 50 mg 3 times daily. To hold if systolic blood pressure less than 120. He will benefit from NICK inhibition once GFR stabilizes. Strongly advised patient to follow-up as an outpatient for chronic kidney disease care. Continue to monitor renal function and urine output.
[2018-06-14 11:28] LABS: Glucose,Whole Blood 102 mg/dL (75-99)
[2018-06-14] MEDS: AZITHROMYCIN 500 MG TAB PO SCH (12:30)
[2018-06-14] MEDS: METOCLOPRAMIDE 5 MG/ML 2 ML VIAL IVP SCH ×3 (12:30→22:25)
[2018-06-14] MEDS: hydrALAZINE HCL 50 MG TAB PO SCH ×3 (12:31→21:34)
--- NOTE | 2018-06-14 12:39 | XR ---
EXAMINATION TYPE: XR chest 1V DATE OF EXAM: 06/14/2018 COMPARISON: 06/12/2018 HISTORY: Chest pain TECHNIQUE: Single frontal view of the chest is obtained. FINDINGS: There is no focal air space opacity, pleural effusion, or pneumothorax seen. The cardiac silhouette size is within normal limits. The osseous structures are intact. IMPRESSION: 1. No acute process.
[2018-06-14] MEDS ORDERED: ALBUTEROL NEBULIZED 2.5 MG/3 ML INHALATION PRN (15:13)
[2018-06-14] MEDS ORDERED: ALBUTEROL NEBULIZED 2.5 MG/3 ML INHALATION STA (15:13)
--- NOTE | 2018-06-14 15:16 | P.PN ---
Subjective Progress Note Date: 06/14/18 Principal diagnosis: Nausea and vomiting Patient was seen and examined. No acute events overnight. Patient continues to complain of severe episodes of nausea associated with bilious vomiting and dry heaving. He complains of a cough productive of clear mucus. Patient reports that he has not been able to increase his oral intake due to the nausea. He denies any changes in bowel habits. No fever or chills. He denies any chest pain, shortness of breath or palpitations. Objective - Vital Signs Vital signs: Vital Signs Temp 98.4 F 06/14/18 08:00 Pulse 103 H 06/14/18 12:00 Resp 17 06/14/18 12:00 BP 182/103 06/14/18 12:00 Pulse Ox 97 06/14/18 12:00 Intake & Output 06/13/18 06/14/18 06/14/18 18:59 06:59 18:59 Intake Total 420 250 400 Output Total 500 Balance -80 250 400 Weight 99.79 kg 100.2 kg Intake: IV 20 Invasive Line 1 20 Oral 400 250 400 Output: Urine 500 Other: # Voids 2 2 - Exam General: [non toxic], [no distress], [appears at stated age] Derm: [warm], [dry] Head: [atraumatic], [normocephalic], [symmetric] Eyes: [EOMI], [no lid lag], [anicteric sclera] Mouth: [no lip lesion], [mucus membranes moist] Cardiovascular: [S1S2 reg], [regular rate], [positive posterior tibial pulse bilateral], Lungs: [Slight end expiratory wheezing], [no rhonchi, no rales] , [no accessory muscle use] Abdominal: [soft], [mild tenderness to palpation of epigastric area without rebound], [no guarding], [no appreciable organomegaly] Ext: [no gross muscle atrophy], [no lower extremity edema], [no contractures] Neuro: [no focal neuro deficits] Psych: [Alert], [oriented], [appropriate affect] - Labs CBC & Chem 7: 06/12/18 15:45 06/14/18 06:46 Labs: Abnormal Lab Results - Last 24 Hours (Table) 06/13/18 06/14/18 06/14/18 Range/Units 21:16 05:55 06:46 Sodium 135 L (137-145) mmol/L Chloride 110 H (98-107) mmol/L BUN 28 H (9-20) mg/dL Creatinine 2.52 H (0.66-1.25) mg/dL Glucose 226 H (74-99) mg/dL POC Glucose (mg/dL) 160 H 227 H (75-99) mg/dL 06/14/18 Range/Units 11:26 Sodium (137-145) mmol/L Chloride (98-107) mmol/L BUN (9-20) mg/dL Creatinine (0.66-1.25) mg/dL Glucose (74-99) mg/dL POC Glucose (mg/dL) 102 H (75-99) mg/dL Assessment and Plan Assessment: Assessment and Plan Nausea Acute bronchitis Hyperglycemia with uncontrolled diabetes Hyperchloremic metabolic acidosis Acute kidney injury on chronic kidney disease Hypertension DVT and GI prophylaxis Possibility gastroparesis with GERD. Continue Maalox. We'll change Reglan to schedule. Continue Zofran. Continue Protonix. Advance diet as tolerated. Acute bronchitis versus pneumonia. Patient afebrile with no leukocytosis. Chest x-ray negative. Continue Mucinex. Start azithromycin for 3 days. Probably due to medication noncompliance. Normal anion gap with bicarbonate of 16 on admission. Blood glucose 481 on admission. Given bolus of normal saline in the ED. Insulin drip discontinued. Patient started on Levemir 10 units in the morning along with insulin sliding scale. Hourly Accu-Cheks. Hypoglycemic precautions. Follow A1c. Chloride 110, bicarbonate 19 to within normal limits. Likely secondary to chronic kidney disease. Nephrology added sodium bicarb. Daily BMP. Creatinine 2.52. Patient previously been advised of CKD. This is likely secondary to uncontrolled diabetes and hypertension. Kidney ultrasound shows no obstruction. Daily BMP. Avoid nephrotoxins. Nephrology consulted, recommends addition of sodium bicarb. Follow nephrology consult. BP 182/103. Continue Cardizem, Coreg. Will add SHA inhibitor when creatinine improves. Start hydralazine 50 mg by mouth 3 times a day. Monitor vitals, adjust medications as necessary. Follow metanephrines for concerns of phe ochromocytoma. SCD boots. Protonix IV. Prescription sent for glucometer. Patient usually takes 40 units of long-acting insulin at home but has been stable and 10 units of insulin while here. This is likely secondary to poor oral intake. We'll try to control his nausea and vomiting today. He is also being treated for acute bronchitis. Adjustment on medications made depending on insulin requirements over the next 24 hours. Possible DC tomorrow.
[2018-06-14 16:58] LABS: Glucose,Whole Blood 219 mg/dL (75-99)
[2018-06-14 20:13] VITALS: RESP 18
[2018-06-14 20:39] LABS: Glucose,Whole Blood 269 mg/dL (75-99)
[2018-06-15 04:55] VITALS: TEMP 98.1
[2018-06-15 06:27] LABS: Glucose,Whole Blood 254 mg/dL (75-99)
[2018-06-15] MEDS: METOCLOPRAMIDE 5 MG/ML 2 ML VIAL IVP SCH ×2 (06:34→12:16)
[2018-06-15] MEDS: INSULIN ASPART (NovoLOG) 100 UNIT/ML VIAL SQ SCH ×2 (06:35→12:15)
[2018-06-15] MEDS: PANTOPRAZOLE 40 MG TABLET PO SCH (06:35)
[2018-06-15] MEDS: CARVEDILOL 6.25 MG TAB PO SCH (06:35)
[2018-06-15] MEDS: MAG HYDROX/AL HYDROX/SIMETH 30 ML CUP PO SCH ×2 (06:36→12:16)
[2018-06-15 07:21] LABS: Calcium 8.3 mg/dL (8.4-10.2); Magnesium 1.7 mg/dL (1.6-2.3); Potassium 4.4 mmol/L (3.5-5.1)
--- NOTE | 2018-06-15 09:20 | P.PN ---
Subjective Patient is seen in follow-up for acute kidney injury on chronic kidney disease. Unclear as to what his baseline renal function is. Creatinine in August 2015 was 1.8. This admission is been stable in the range of 2.3-2.5 - 2.78 today. Patient presented with DKA. Blood sugars are now better controlled. Oral intake is improving. Does have dry heaving when he coughs. He is able to keep food down. Blood pressure better today. Urine output is good. Vital signs are stable. General: The patient appeared well nourished and normally developed. HEENT: Head exam is unremarkable. Neck is without jugular venous distension. LUNGS: Lungs are clear to auscultation and percussion. Breath sounds decreased. HEART: Rate and Rhythm are regular. First and second heart sounds normal. No murmurs, rubs or gallops. ABDOMEN: Abdominal exam reveals normal bowel sounds. Non-tender and non- distended. No evidence of peritonitis. EXTREMITITES: No clubbing, cyanosis, or edema. Objective - Vital Signs Vital signs: Vital Signs Temp 98.1 F 06/15/18 04:00 Pulse 99 06/15/18 04:00 Resp 18 06/15/18 04:00 BP 177/87 06/15/18 04:00 Pulse Ox 96 06/15/18 04:00 Intake & Output 06/14/18 06/15/18 06/15/18 18:59 06:59 18:59 Intake Total 1066 222 Output Total 600 Balance 466 222 Weight 100.2 kg Intake: Oral 1066 222 Output: Urine 600 Other: # Voids 1 - Labs CBC & Chem 7: 06/12/18 15:45 06/15/18 06:08 Labs: Abnormal Lab Results - Last 24 Hours (Table) 06/14/18 06/14/18 06/14/18 Range/Units 11:26 16:54 20:38 Sodium (137-145) mmol/L Chloride (98-107) mmol/L Carbon Dioxide (22-30) mmol/L BUN (9-20) mg/dL Creatinine (0.66-1.25) mg/dL Glucose (74-99) mg/dL POC Glucose (mg/dL) 102 H 219 H 269 H (75-99) mg/dL Calcium (8.4-10.2) mg/dL 06/15/18 06/15/18 Range/Units 06:08 06:26 Sodium 135 L (137-145) mmol/L Chloride 111 H (98-107) mmol/L Carbon Dioxide 18 L (22-30) mmol/L BUN 29 H (9-20) mg/dL Creatinine 2.78 H (0.66-1.25) mg/dL Glucose 245 H (74-99) mg/dL POC Glucose (mg/dL) 254 H (75-99) mg/dL Calcium 8.3 L (8.4-10.2) mg/dL Assessment and Plan Plan: Assessment: 1. Chronic kidney disease stage III secondary to diabetic kidney disease. Creatinine in August 2015 was 1.8 and has been in the range of 2.3-2.5 this admission. ? ATN versus progression of underlying chronic kidney disease. No evidence of hydronephrosis noted on kidney ultrasound. 2. DKA. Resolved. 3. Insulin-dependent diabetes mellitus. Diagnosed over 20 years ago. 4. Hypertension with chronic kidney disease. Blood pressure better. 5. Metabolic acidosis secondary to chronic kidney disease. Maintained on oral sodium bicarbonate. Plan: Encourage oral intake. He will benefit from NICK inhibition once GFR stabilizes. Strongly advised patient to follow-up as an outpatient for chronic kidney dise [facility] care. Continue to monitor renal function and urine output. Increase oral sodium bicarbonate dose. Maintain current antihypertensives.
[2018-06-15] MEDS: AZITHROMYCIN 500 MG TAB PO SCH (09:46)
[2018-06-15] MEDS: INSULIN DETEMIR (LEVEMIR) 100 UNIT/ML SYR SQ SCH (09:46)
[2018-06-15] MEDS: guaiFENesin SYRUP 100MG/5ML 200 MG/10 ML CUP PO PRN (09:46)
[2018-06-15] MEDS: amLODIPine 5 MG TAB PO SCH (09:47)
[2018-06-15] MEDS: DILTIAZEM CD 120 MG CAP.ER.24H PO SCH (09:47)
[2018-06-15] MEDS: hydrALAZINE HCL 50 MG TAB PO SCH (09:47)
[2018-06-15 11:47] LABS: Glucose,Whole Blood 434 mg/dL (75-99)
--- NOTE | 2018-06-15 12:28 | P.DS ---
Providers Date of admission: 06/12/18 16:40 Expected date of discharge: 06/15/18 Attending physician: Erika Farmer MD Consults: 06/12/18 18:52 Consult Physician Routine Consulting Provider: Chacho Arce Consult Reason/Comments: CKD Do you want consulting provider notified?: Yes Primary care physician: Stated None Hospital Course: 37-year-old male with PMH of type 1 diabetes mellitus on insulin, CKG, hypertension, hyperlipidemia presents the ED for nausea and vomiting. Patient reports feeling unwell over the past 1 month. He reports that he wakes up with nausea on a daily basis, which improved throughout the day. He does endorse occasional nonbilious and nonbloody vomiting. Patient also reports cough productive of yellow sputum along with rhinorrhea that has been ongoing for the past 2-1/2 weeks. Patient reports that his cough and nausea, vomiting has been progressively getting worse. Yesterday he took DayQuil, some cough syrup and 2 Nyquils prior to going to bed. Patient reports waking up with a hacking cough and with multiple episodes of nausea and vomiting which prompted him to come to the ED. Of note, patient reports being diagnosed with type 1 diabetes mellitus since the age of 16. He has been on Toujeo 40 units in the morning and endorses compliance. Patient reports having a diet that is unhealthy, full of junk food and fried fish. Patient reports being released from [facility] one year ago, he was told that he has kidney disease with 50% renal function. Patient denies any headache, fever or chills, chest pain, palpitations, changes in urination or bowel habits. He does report a decreased appetite and intermittent lower extremity swelling that in the is alleviated with lower extremity elevation. In the ED, CBC showed anemia with hemoglobin of 12.6. VBG showed pH of 7.42. CMP showed a sodium of 133, bicarbonate of 16, BUN of 41 and creatinine of 2.57. Blood glucose was 481. Urinalysis showed 3+ protein, 4+ glucose, 1+ ketone. He was acetone positive. Patient is admitted for DKA. Patient's DKA was thought to be secondary to medication noncompliance. Initially had a normal anion gap with a bicarbonate of 16. Initial blood glucose was 41. Started on insulin drip and half-normal saline with added potassium of 200 mL/h. He was given Zofran as needed for nausea or vomiting. He started on Protonix IV daily. His blood sugars improved overnight and he was taken off the insulin drip after being given 10 units of IV insulin. Patient was started on Levemir 10 units in the morning along with insulin sliding scale. He received about 6 units over the next 2 days daily and correction. Patient was also noted to have an elevated creatinine of 2.78 on discharge. Nephrology was consulted and recommended a kidney ultrasound. Kidney ultrasound showed no hydronephrosis. Sodium bicarbonate was added for metabolic acidosis thought to be secondary to chronic kidney disease. Patient was noted to have an elevated blood pressure throughout his admission. His home medications of Cardizem and Coreg were resumed. He was started on hydralazine 50 mg by mouth 3 times a day for better control and a 2. Patient was seen and examined prior to discharge. No acute events overnight. Patient continues to complain of cough productive of clear sputum. Patient reports nausea and vomiting have gotten better. He denies any chest pain, shortness of breath or palpitations. No fever or chills. Looking for to going home. General: [non toxic], [no distress], [appears at stated age] Derm: [warm], [dry] Head: [atraumatic], [normocephalic], [symmetric] Eyes: [EOMI], [no lid lag], [anicteric sclera] Mouth: [no lip lesion], [mucus membranes moist] Cardiovascular: [S1S2 reg], [regular rate], [positive posterior tibial pulse bilateral], Lungs: [Clear to auscultation bilaterally], [no rhonchi, no rales] , [no accessory muscle use] Abdominal: [soft], [nontender to palpation], [no guarding], [no appreciable organomegaly] Ext: [no gross muscle atrophy], [no lower extremity edema], [no contractures] Neuro: [no focal neuro deficits] Psych: [Alert], [oriented], [appropriate affect] Assessment and Plan Gastroparesis Acute bronchitis Hyperglycemia with uncontrolled diabetes Hyperchloremic metabolic acidosis Acute kidney injury on chronic kidney disease Hypertension DVT and GI prophylaxis Possibility gastroparesis with GERD. Continue Maalox. Greatly improved since scheduling Reglan. Continue Zofran. Continue Protonix. Advance diet as tolerated. Acute bronchitis versus pneumonia. Patient afebrile with no leukocytosis. Chest x-ray negative. Continue Mucinex. Start azithromycin for 3 days. Probably due to medication noncompliance. Normal anion gap with bicarbonate of 16 on admission. Blood glucose 481 on admission. Given bolus of normal saline in the ED. Insulin drip discontinued. Patient started on Levemir 10 units in the morning along with insulin sliding scale. Hourly Accu-Cheks. Hypoglycemic precautions. A1c 9.5. Chloride 111, bicarbonate 18. Likely secondary to chronic kidney disease. Nephrology added sodium bicarb. Daily BMP. Creatinine 2.78. Patient previously been advised of CKD. This is likely secondary to uncontrolled diabetes and hypertension. Kidney ultrasound shows no obstruction. Daily BMP. Avoid nephrotoxins. Nephrology consulted, recommends addition of sodium bicarb. Follow nephrology consult. BP 177/87. Continue Cardizem, Coreg. Will add SHA inhibitor when creatinine improves. Start hydralazine 50 mg by mouth 3 times a day. Monitor vitals, adjust medications as necessary. Follow metanephrines for concerns of pheochromocytoma. SCD boots. Protonix IV. Patient be discharged home on 20 units of long-acting insulin in the morning. (His oral intake has gone up, requiring additional corrective units today, takes 40 units of long-acting at home). Anticipate his oral intake to improve over the coming days for his insulin requirements to go. He is to follow-up with his PCP and electrical appliance repairer for further adjustments of his insulin. Advised of hypoglycemic symptoms. This complex discharge took greater than 30 minutes. Pertinent Studies: Chest x-ray, KUB Patient Condition at Discharge: Stable Plan - Discharge Summary Discharge Rx Participant: Yes New Discharge Prescriptions: New hydrALAZINE HCL [Apresoline] 50 mg PO TID #90 tab amLODIPine [Norvasc] 5 mg PO DAILY #30 tab Pantoprazole [Protonix] 40 mg PO AC-BRKFST #30 tablet. Sodium Bicarbonate Tab 1,300 mg PO BID #60 tab Azithromycin [Zithromax] 500 mg PO Q24H #1 tab Alcohol Antiseptic Pads [Alcohol Swabs] 1 each TP QID #120 med..pad [place], Insulin Disposable [Bd Ultra-Fine Pen Needle 4mm 32g] 1 each QAM #30 dis.needle Lancets 1 each QID #120 each Blood Sugar Diagnostic [Test Strips] 1 each QID #120 strip Continue Diltiazem Cd [Cardizem CD] 120 mg PO DAILY #30 cap.er.24h Carvedilol [Coreg] 6.25 mg PO BID #60 tab Simvastatin [Zocor] 40 mg PO HS #30 tab Changed Insulin Glargine,Hum.rec.anlog [Toujeo Solostar] 20 units SQ DAILY #2 insuln.pen Discontinued INSULIN LISPRO (humaLOG) [humaLOG] See Protocol SQ AC-TID Furosemide [Lasix] 40 mg PO DAILY Discharge Medication List Alcohol Antiseptic Pads [Alcohol Swabs] 1 each QID #120 med..pad 06/15/18 [Rx] Azithromycin [Zithromax] 500 mg PO Q24H #1 tab 06/15/18 [Rx] Blood Sugar Diagnostic [Test Strips] 1 each QID #120 strip 06/15/18 [Rx] Carvedilol [Coreg] 6.25 mg PO BID #60 tab 06/15/18 [Rx] Diltiazem Cd [Cardizem CD] 120 mg PO DAILY #30 cap.er.24h 06/15/18 [Rx] Insulin Glargine,Hum.rec.anlog [Toujeo Solostar] 20 units SQ DAILY #2 insuln.pen 06/15/18 [Rx] Lancets 1 each QID #120 each 06/15/18 [Rx] [place], Insulin Disposable [Bd Ultra-Fine Pen Needle 4mm 32g] 1 each QAM #30 dis.needle 06/15/18 [Rx] Pantoprazole [Protonix] 40 mg PO AC-BRKFST #30 tablet.dr 06/15/18 [Rx] Simvastatin [Zocor] 40 mg PO HS #30 tab 06/15/18 [Rx] Sodium Bicarbonate Tab 1,300 mg PO BID #60 tab 06/15/18 [Rx] amLODIPine [Norvasc] 5 mg PO DAILY #30 tab 06/15/18 [Rx] hydrALAZINE HCL [Apresoline] 50 mg PO TID #90 tab 06/15/18 [Rx] Follow up Appointment(s)/Referral(s): None,Stated [Primary Care Provider] - 1-2 days (Please call your insurance company for a list of physicians in your area. You will need to follow up with a primary physician within one week of being discharged from the hospital.) Chacho Arce DO [STAFF PHYSICIAN] - 1 Week Janell Corbett MD [STAFF PHYSICIAN] - 1 Week Patient Instructions/Handouts: Diabetic Ketoacidosis (DC), Hypertension (DC), Diabetic Kidney Disease (DC) Activity/Diet/Wound Care/Special Instructions: Glucometer ordered for dx of IDDM - [facility] - [phone] Diet: Diabetic Follow-up PCP within 1-2 days of discharge. Follow-up endocrinology within 1 week of discharge. Take all medications as advised. Please check your blood sugar 4 times a day. Discharge Disposition: HOME SELF-CARE
[2018-06-15 13:31] VITALS: BP 144/90; PULSE 100
[2018-06-15] MEDS ORDERED: SODIUM BICARBONATE TAB 650 MG TAB PO SCH (21:00)
== END 2018-06-15 14:46 | disposition home or self-care (01) | DRG 637 ==
LOC: EC 14:58 → 3SCARD 16:40
PROVIDERS: ADMIT Family Medicine; ATTEND Family Medicine
DX: E10.10 Type 1 diabetes mellitus with ketoacidosis without coma (principal); N17.0 Acute kidney failure with tubular necrosis; J18.9 Pneumonia, unspecified organism; E87.1 Hypo-osmolality and hyponatremia; K31.84 Gastroparesis; N18.3 Chronic kidney disease, stage 3 (moderate); E10.22 Type 1 diabetes mellitus with diabetic chronic kidney disease; E10.43 Type 1 diabetes mellitus with diabetic autonomic (poly)neuropathy; I12.9 Hypertensive chronic kidney disease with stage 1 through stage 4 chronic kidney disease, or unspecified chronic kidney disease; E78.5 Hyperlipidemia, unspecified; D64.9 Anemia, unspecified; J20.9 Acute bronchitis, unspecified; K21.9 Gastro-esophageal reflux disease without esophagitis; Z79.4 Long term (current) use of insulin; Z79.899 Other long term (current) drug therapy; Z91.14 Patient's other noncompliance with medication regimen; Z84.1 Family history of disorders of kidney and ureter
CPT/HCPCS: 36415; 71045; 74018; 76770; 80048; 80051; 80053; 81001; 82009; 82150; 82565; 82803; 82947; 83036; 83690; 83735; 83835; 84100; 84520; 85025; 96361; 96374; 99285

== ENCOUNTER 2020-01-08 17:27 | Observation (INO) | payer MEDICARE, OTHER ==
[2020-01-08] MEDS ORDERED: ACETAMINOPHEN TAB 500 MG TAB PO STA (18:00)
[2020-01-08] MEDS ORDERED: ACETAMINOPHEN TAB 500 MG TAB PO PRN (18:00)
[2020-01-08] MEDS ORDERED: DEXTROSE 5%-0.45% NACL 1,000 ML IV ONE (18:02)
[2020-01-08] MEDS ORDERED: ONDANSETRON 4 MG/2 ML VIAL IVP PRN (18:06)
[2020-01-08] MEDS ORDERED: NALOXONE 0.4 MG/ML 1 ML VIAL IV PRN (18:06)
--- NOTE | 2020-01-08 18:06 | ED ---
General Adult HPI - General Chief complaint: Recheck/Abnormal Lab/Rx Stated complaint: Low Glucose Time Seen by Provider: 01/08/20 17:52 Source: patient, EMS, old records reviewed (Review of report from [place] including emergency notes, lab work and radiology results.) Mode of arrival: EMS Limitations: no limitations - History of Present Illness Initial comments: Patient is a pleasant 39-year-old male presenting to the emergency Department as a transfer from [facility].Please use medication as discussed. Please follow-up with family doctor in the next 2 days of symptoms have not improved. Please return to emergency room if the symptoms increase or worsen or for any other concerns. There was found to have shaking and question will seizure activity that resolved with glucose. Patient had a blood sugar of 22. Patient states he does feel shaky at this time. Patient states he has had a couple episodes of emesis. Patient states he has minimal cough that just started. No fevers at home. No abdominal pain. No dyspnea. - Related Data Previous Rx's Medication Instructions Recorded Alcohol Antiseptic Pads [Alcohol 1 each QID #120 med..pad 06/15/18 Swabs] Azithromycin [Zithromax] 500 mg PO Q24H #1 tab 06/15/18 Blood Sugar Diagnostic [Test 1 each QID #120 strip 06/15/18 Strips] Diltiazem Cd [Cardizem CD] 120 mg PO DAILY #30 cap.er.24h 06/15/18 Insulin Glargine,Hum.rec.anlog 20 units SQ DAILY #2 insuln.pen 06/15/18 [Chris Mendenhallostgiuliana] Lancets 1 each MC QID #120 each 06/15/18 [place], Insulin Disposable [Bd 1 each QAM #30 dis.needle 06/15/18 Ultra-Fine Pen Needle 4mm 32g] Pantoprazole [Protonix] 40 mg PO AC-BRKFST #30 tablet. 06/15/18 Simvastatin [Zocor] 40 mg PO HS #30 tab 06/15/18 Sodium Bicarbonate Tab 1,300 mg PO BID #60 tab 06/15/18 amLODIPine [Norvasc] 5 mg PO DAILY #30 tab 06/15/18 carvediloL [Coreg] 6.25 mg PO BID #60 tab 06/15/18 hydrALAZINE HCL [Apresoline] 50 mg PO TID #90 tab 06/15/18 Allergies Allergy/AdvReac Type Severity Reaction Status Date / Time adhesive Allergy Intermediate Rash/Hives Verified 01/08/20 17:52 Review of Systems ROS Statement: Those systems with pertinent positive or pertinent negative responses have been documented in the HPI. ROS Other: All systems not noted in ROS Statement are negative. Constitutional: Reports: as per HPI. Denies: fever Eyes: Denies: eye pain ENT: Denies: ear pain Respiratory: Reports: as per HPI, cough. Denies: dyspnea Cardiovascular: Denies: chest pain Gastrointestinal: Reports: nausea. Denies: abdominal pain Genitourinary: Denies: dysuria Musculoskeletal: Denies: back pain Skin: Denies: rash Neurological: Denies: weakness Past Medical History Past Medical History: Diabetes Mellitus, Hypertension, Renal Disease Additional Past Medical History / Comment(s): dialysis History of Any Multi-Drug Resistant Organisms: None Reported Past Surgical History: Joint Replacement, Orthopedic Surgery Additional Past Surgical History / Comment(s): spinal sx, pelvis sx Past Anesthesia/Blood Transfusion Reactions: No Reported Reaction Past Psychological History: Anxiety, Bipolar, Depression Smoking Status: Never smoker Past Alcohol Use History: None Reported Past Drug Use History: None Reported - Past Family History Father History Unknown: Yes Mother History Unknown: Yes General Exam Limitations: no limitations General appearance: alert, in no apparent distress Head exam: Present: normocephalic Eye exam: Present: normal appearance Neck exam: Present: normal inspection. Absent: tenderness, meningismus Respiratory exam: Present: normal lung sounds bilaterally, other (Dialysis catheter anterior chest wall) Cardiovascular Exam: Present: tachycardia GI/Abdominal exam: Present: soft. Absent: distended, tenderness Extremities exam: Present: normal inspection Neurological exam: Present: alert. Absent: motor sensory deficit Psychiatric exam: Present: normal affect, normal mood Skin exam: Present: normal color Course Vital Signs 01/08/20 17:52 Temperature 99.8 F H Pulse Rate 114 H Respiratory 20 Rate Blood Pressure 196/88 O2 Sat by Pulse 95 Oximetry Medical Decision Making - Medical Decision Making Case was discussed with practitioner Constance who will admit covering for Dr. Singh. Patient will be started on D5 half. Accu-Chek will be ordered. In addition Nixon test will be ordered Disposition Clinical Impression: Hypoglycemia Disposition: ADMITTED IP TO THIS HOSP Is patient prescribed a controlled substance at d/c from ED?: No Referrals: Nonstaff,Physician [Primary Care Provider] - 1-2 days Decision Time: 18:06
[2020-01-08 18:40] LABS: C Reactive Protein 12.6 mg/L (<10.0); Magnesium 2.2 mg/dL (1.6-2.3)
[2020-01-08 18:41] LABS: Glucose,Whole Blood 211 mg/dL (75-99)
[2020-01-08 21:48] LABS: Glucose,Whole Blood 266 mg/dL (75-99)
[2020-01-08] MEDS ORDERED: cloNIDine HCL 0.1 MG TAB PO PRN (23:21)
[2020-01-08] MEDS ORDERED: cloNIDine HCL 0.2 MG TAB PO PRN (23:21)
[2020-01-08] MEDS ORDERED: cloNIDine 0.3 MG/24HR PATCH TRANSDERM SCH (23:30)
[2020-01-08] MEDS ORDERED: NON FORMULARY DRUG (Hydralazine Hcl [Apresoline] 100 MG Tablet) PO SCH (23:30)
[2020-01-09] MEDS: carvediloL 12.5 MG TAB PO SCH ×3 (00:54→18:17)
[2020-01-09 01:50] LABS: Glucose,Whole Blood 374 mg/dL (75-99)
[2020-01-09 01:50] LABS: Glucose,Whole Blood 387 mg/dL (75-99)
[2020-01-09 03:44] LABS: Ferritin 461.8 ng/mL (22.0-322.0)
[2020-01-09 06:20] LABS: Basophils # (A) 0.1 k/uL (0-0.2); Basophils % (A) 1 %; Eosinophils # (A) 0.2 k/uL (0-0.7); Eosinophils % (A) 2 %; HCT 26.5 % (39.0-53.0); HGB 8.9 gm/dL (13.0-17.5); Lymphocytes # (A) 0.6 k/uL (1.0-4.8); Lymphocytes % (A) 7 %; MCH 31.2 pg (25.0-35.0); MCHC 33.7 g/dL (31.0-37.0); MCV 92.5 fL (80.0-100.0); Mean Platelet Volume 7.3; Monocytes # (A) 0.5 k/uL (0-1.0); Monocytes % (A) 5 %; Neutrophils # (A) 7.6 k/uL (1.3-7.7); Neutrophils % (A) 85 %; Platelet Count 245 k/uL (150-450); RBC 2.87 m/uL (4.30-5.90); RDW 14.3 % (11.5-15.5)
[2020-01-09 07:34] LABS: Glucose,Whole Blood 253 mg/dL (75-99)
[2020-01-09] MEDS: FUROSEMIDE 20 MG TAB PO SCH (08:48)
[2020-01-09] MEDS: DILTIAZEM CD 120 MG CAP.ER.24H PO SCH (08:48)
[2020-01-09] MEDS: minoxidiL 2.5 MG TAB PO SCH (08:48)
[2020-01-09] MEDS: hydrALAZINE HCL 25 MG TAB PO SCH ×3 (08:48→20:38)
[2020-01-09] MEDS: INSULIN DETEMIR (LEVEMIR) 100 UNIT/ML SYR SQ SCH (08:49)
[2020-01-09] MEDS: INSULIN ASPART (NovoLOG) 100 UNIT/ML VIAL SQ SCH ×4 (08:49→20:39)
[2020-01-09] MEDS ORDERED: PANTOPRAZOLE 40 MG/10 ML VIAL IV SCH (09:00)
[2020-01-09 10:02] LABS: Albumin 2.7 g/dL (3.80-4.90); Albumin/Globulin Ratio 1.5 (1.60-3.17); Anion Gap 12.4 mmol/L (4.00-12.00); BUN/Creat Ratio 7.32 Ratio (12.00-20.00); Calcium 7.5 mg/dL (8.7-10.3); Carbon Dioxide 25.6 mmol/L (21.6-31.8); Globulin 1.8 g/dL (1.6-3.3); Potassium 4.6 mmol/L (3.5-5.5); Total Bilirubin 0.2 mg/dL (0.2-1.2); Total Protein 4.5 g/dL (6.2-8.2)
[2020-01-09 11:33] LABS: African American GFR (CKD) 5.9 (60.0-200.0); Non-African American GFR(CKD) 5.1 (60.0-200.0)
[2020-01-09 11:44] LABS: Glucose,Whole Blood 362 mg/dL (75-99)
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
--- NOTE | 2020-01-09 11:51 | P.DS ---
Providers Date of admission: 01/08/20 18:08 Attending physician: Terry Singh Consults: 01/08/20 18:07 Consult Physician Routine Consulting Provider: Chacho Arce Consult Reason/Comments: crf Do you want consulting provider notified?: Yes Primary care physician: Carson Luevano [facility] Course: Refer to my history of present illness for further details Plan - Discharge Summary Discharge Rx Participant: No New Discharge Prescriptions: Continue Insulin Glargine,Hum.rec.anlog [Toujeo Solostar] 30 units SQ DAILY minoxidiL [Minoxidil] 2.5 mg PO DAILY hydrALAZINE HCL [Apresoline] 100 mg PO TID Furosemide [Lasix] 20 mg PO DAILY Diltiazem HCl [Diltiazem HCl 24Hr ER] 120 mg PO DAILY INSULIN ASPART (NovoLOG) [NovoLOG (formulary)] See Protocol SQ ACHS PRN PRN Reason: Hypoglycemia cloNIDine HCL [Catapres] 0.2 mg PO DAILY PRN PRN Reason: systolic pressure >180 cloNIDine HCL [Catapres] 0.1 mg PO DAILY PRN PRN Reason: dialysis cloNIDine 0.3 MG/24HR PATCH [Catapres-TTS] 1 each TRANSDERM Q7D Carvedilol [Coreg] 25 mg PO BID Discharge Medication List Carvedilol [Coreg] 25 mg PO BID 01/08/20 [History] Diltiazem HCl [Diltiazem HCl 24Hr ER] 120 mg PO DAILY 01/08/20 [History] Furosemide [Lasix] 20 mg PO DAILY 01/08/20 [History] INSULIN ASPART (NovoLOG) [NovoLOG (formulary)] See Protocol SQ ACHS PRN 01/08/20 [History] Insulin Glargine,Hum.rec.anlog [Toujeo Solostar] 30 units SQ DAILY 01/08/20 [History] cloNIDine 0.3 MG/24HR PATCH [Catapres-TTS] 1 each TRANSDERM Q7D 01/08/20 [History] cloNIDine HCL [Catapres] 0.1 mg PO DAILY PRN 01/08/20 [History] cloNIDine HCL [Catapres] 0.2 mg PO DAILY PRN 01/08/20 [History] hydrALAZINE HCL [Apresoline] 100 mg PO TID 01/08/20 [History] minoxidiL [Minoxidil] 2.5 mg PO DAILY 01/08/20 [History] Follow up Appointment(s)/Referral(s): Nonstaff,Physician [REFERRING] - 1-2 days
[2020-01-09] MEDS ORDERED: hydrALAZINE HCL 20 MG/ML 1 ML VIAL IVP PRN (12:37)
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
[2020-01-09 13:56] LABS: % Iron Saturation 7.14 (15.00-50.00); Ferritin 407.8 ng/mL (22.0-322.0)
[2020-01-09 15:58] LABS: Hepatitis B Surface AB- Quant 930.3 mIU/mL; Hepatitis B Surface Antibody Reactive (Non-Reactive); Hepatitis B Surface Antigen Non-Reactive (Non-Reactive)
[2020-01-09 16:04] LABS: Hemoglobin A1C 9.2 % (4.0-6.0)
[2020-01-09 16:53] LABS: Glucose,Whole Blood 103 mg/dL (75-99)
[2020-01-09 20:28] LABS: Glucose,Whole Blood 153 mg/dL (75-99)
[2020-01-10 07:16] LABS: Glucose,Whole Blood 195 mg/dL (75-99)
[2020-01-10] MEDS ORDERED: PANTOPRAZOLE 40 MG TABLET PO SCH (07:30)
[2020-01-10] MEDS: FUROSEMIDE 20 MG TAB PO SCH (07:51)
[2020-01-10] MEDS: carvediloL 12.5 MG TAB PO SCH (07:51)
[2020-01-10] MEDS: hydrALAZINE HCL 25 MG TAB PO SCH (07:51)
[2020-01-10] MEDS: DILTIAZEM CD 120 MG CAP.ER.24H PO SCH (07:52)
[2020-01-10] MEDS: INSULIN ASPART (NovoLOG) 100 UNIT/ML VIAL SQ SCH (07:52)
[2020-01-10] MEDS: minoxidiL 2.5 MG TAB PO SCH (07:52)
[2020-01-10] MEDS: INSULIN DETEMIR (LEVEMIR) 100 UNIT/ML SYR SQ SCH (07:53)
--- NOTE | 2020-01-10 09:22 | P.PN ---
Subjective Patient is seen in follow-up for her incisional disease. He is maintained on hemodialysis on Wednesday schedule. Blood sugars are controlled. Oral intake is good. No active complaints. Vital signs are stable. General: The patient appeared well nourished and normally developed. HEENT: Head exam is unremarkable. Neck is without jugular venous distension. LUNGS: Breath sounds decreased. HEART: Rate and Rhythm are regular. ABDOMEN: Soft, nontender. EXTREMITITES: No edema. Objective - Vital Signs Vital signs: Vital Signs Temp 98.6 F 01/10/20 04:25 Pulse 92 01/10/20 04:25 Resp 16 01/10/20 04:25 BP 153/81 01/10/20 04:25 Pulse Ox 97 01/10/20 04:25 Intake & Output 01/09/20 01/10/20 01/10/20 18:59 06:59 18:59 Intake Total 240 Output Total 1300 Balance -1060 Weight 95.6 kg Intake: Oral 240 Output: Urine 1300 Other: # Voids 300 - Labs CBC & Chem 7: 01/09/20 06:00 01/09/20 06:00 Labs: Abnormal Lab Results - Last 24 Hours (Table) 01/08/20 01/09/20 01/09/20 Range/Units 18:10 06:00 06:00 Anion Gap 12.40 H (4.00-12.00) mmol/L BUN 82.0 H (9.0-27.0) mg/dL Creatinine 11.2 H* (0.6-1.5) mg/dL Est GFR (CKD-EPI)AfAm 5.9 L (60.0-200.0) Est GFR (CKD-EPI)NonAf 5.1 L (60.0-200.0) BUN/Creatinine Ratio 7.32 L (12.00-20.00) Ratio Glucose 281 H (70-110) mg/dL POC Glucose (mg/dL) (75-99) mg/dL Hemoglobin A1c 9.2 H (4.0-6.0) % Calcium 7.5 L (8.7-10.3) mg/dL Iron (65-175) ug/dL TIBC (228-460) ug/dL % Saturation (15.00-50.00) Ferritin (22.0-322.0) ng/mL Total Protein 4.5 L (6.2-8.2) g/dL Albumin 2.70 L (3.80-4.90) g/dL Albumin/Globulin Ratio 1.50 L (1.60-3.17) g/dL Procalcitonin 0.23 H (0.02-0.09) ng/mL Hep Bs Antibody (Non-Reactive) 01/09/20 01/09/20 01/09/20 Range/Units 06:00 06:00 11:42 Anion Gap (4.00-12.00) mmol/L BUN (9.0-27.0) mg/dL Creatinine (0.6-1.5) mg/dL Est GFR (CKD-EPI)AfAm (60.0-200.0) Est GFR (CKD-EPI)NonAf (60.0-200.0) BUN/Creatinine Ratio (12.00-20.00) Ratio Glucose (70-110) mg/dL POC Glucose (mg/dL) 362 H (75-99) mg/dL Hemoglobin A1c (4.0-6.0) % Calcium (8.7-10.3) mg/dL Iron 13 L (65-175) ug/dL TIBC 182 L (228-460) ug/dL % Saturation 7.14 L (15.00-50.00) Ferritin 407.8 H (22.0-322.0) ng/mL Total Protein (6.2-8.2) g/dL Albumin (3.80-4.90) g/dL Albumin/Globulin Ratio (1.60-3.17) g/dL Procalcitonin (0.02-0.09) ng/mL Hep Bs Antibody Reactive A (Non-Reactive) 01/09/20 01/09/20 01/10/20 Range/Units 16:50 20:27 07:01 Anion Gap (4.00-12.00) mmol/L BUN (9.0-27.0) mg/dL Creatinine (0.6-1.5) mg/dL Est GFR (CKD-EPI)AfAm (60.0-200.0) Est GFR (CKD-EPI)NonAf (60.0-200.0) BUN/Creatinine Ratio (12.00-20.00) Ratio Glucose (70-110) mg/dL POC Glucose (mg/dL) 103 H 153 H 195 H (75-99) mg/dL Hemoglobin A1c (4.0-6.0) % Calcium (8.7-10.3) mg/dL Iron (65-175) ug/dL TIBC (228-460) ug/dL % Saturation (15.00-50.00) Ferritin (22.0-322.0) ng/mL Total Protein (6.2-8.2) g/dL Albumin (3.80-4.90) g/dL Albumin/Globulin Ratio (1.60-3.17) g/dL Procalcitonin (0.02-0.09) ng/mL Hep Bs Antibody (Non-Reactive) Microbiology - Last 24 Hours (Table) 01/08/20 17:02 Blood Culture - Preliminary Blood No Growth after 24 hours Assessment and Plan Plan: Assessment: 1. End-stage renal disease maintained on hemodialysis on Wednesday schedule via a permacath. He follows with a nonfarm animal caretaker out of [place], [place]. 2. Hypoglycemia status post D5 infusion. Resolved. 3. Diabetes mellitus. 4. Hypertension with chronic kidney disease. 5. Anemia of chronic kidney disease. Iron deficiency noted. Plan: I will give him a dose of IV iron today. Patient is refusing hemodialysis inpatient but states he will go to his outpatient unit this afternoon.
[2020-01-10] MEDS ORDERED: SODIUM FERRIC GLUCONAT-SUCROSE 125 MG in SODIUM CHLORIDE 0.9% 100 ML IVPB ONE (10:00)
--- NOTE | 2020-01-10 11:27 | P.DS ---
Providers Date of admission: 01/08/20 18:08 Expected date of discharge: 01/10/20 Attending physician: Terry Singh Consults: 01/08/20 18:07 Consult Physician Routine Consulting Provider: Chacho Arce Consult Reason/Comments: crf Do you want consulting provider notified?: Yes Primary care physician: [facility] Course: Final diagnosis -Hypoglycemia -Type 2 diabetes mellitus uncontrolled low blood sugars -End-stage disease secondary to diabetic nephropathy -Hypertension -Depression Primary care physician: [facility] Course: Refer to my history of present illness for further details 01/10/2020 On exam vital signs are stable. Temp is 98.6F, pulse 92, respirations are 16, blood pressure is 153/81, oxygen saturation is 97% on room air. Patient to continue current medication regimen and discussed with the patient in detail about following up with primary care provider and medication compliance. Patient is scheduled with his personal care service provider for dialysis this afternoon and will be going there and maintaining a schedule Wednesday/Wednesday/Wednesday. Cardio S1, S2 are present. Respiratory is clear to auscultation with no wheezing or rhonchi noted. Abdomen is soft and nontender. Nervous system shows no focal deficits. Currently patient denies any chest pain, shortness of breath, or palpitations. Patient is afebrile. No reports of nausea or vomiting and patient is tolerating diet. Patient states he is currently awaiting his ride to pick him up and will be going to dialysis this afternoon. Plan - Discharge Summary Discharge Rx Participant: No New Discharge Prescriptions: Continue Insulin Glargine,Hum.rec.anlog [Toujeo Solostar] 30 units SQ DAILY minoxidiL [Minoxidil] 2.5 mg PO DAILY hydrALAZINE HCL [Apresoline] 100 mg PO TID Furosemide [Lasix] 20 mg PO DAILY Diltiazem HCl [Diltiazem HCl 24Hr ER] 120 mg PO DAILY INSULIN ASPART (NovoLOG) [NovoLOG (formulary)] See Protocol SQ ACHS PRN PRN Reason: Hypoglycemia cloNIDine HCL [Catapres] 0.2 mg PO DAILY PRN PRN Reason: systolic pressure >180 cloNIDine HCL [Catapres] 0.1 mg PO DAILY PRN PRN Reason: dialysis cloNIDine 0.3 MG/24HR PATCH [Catapres-TTS] 1 each TRANSDERM Q7D Carvedilol [Coreg] 25 mg PO BID Discharge Medication List Carvedilol [Coreg] 25 mg PO BID 01/08/20 [History] Diltiazem HCl [Diltiazem HCl 24Hr ER] 120 mg PO DAILY 01/08/20 [History] Furosemide [Lasix] 20 mg PO DAILY 01/08/20 [History] INSULIN ASPART (NovoLOG) [NovoLOG (formulary)] See Protocol SQ ACHS PRN 01/08/20 [History] Insulin Glargine,Hum.rec.anlog [Toujeo Solostar] 30 units SQ DAILY 01/08/20 [History] cloNIDine 0.3 MG/24HR PATCH [Catapres-TTS] 1 each TRANSDERM Q7D 01/08/20 [History] cloNIDine HCL [Catapres] 0.1 mg PO DAILY PRN 01/08/20 [History] cloNIDine HCL [Catapres] 0.2 mg PO DAILY PRN 01/08/20 [History] hydrALAZINE HCL [Apresoline] 100 mg PO TID 01/08/20 [History] minoxidiL [Minoxidil] 2.5 mg PO DAILY 01/08/20 [History] Follow up Appointment(s)/Referral(s): Nonstaff,Physician [REFERRING] - 1-2 days Patient Condition at Discharge: Stable Plan - Discharge Summary Discharge Rx Participant: No New Discharge Prescriptions: Continue Insulin Glargine,Hum.rec.anlog [Toujeo Solostar] 30 units SQ DAILY minoxidiL [Minoxidil] 2.5 mg PO DAILY hydrALAZINE HCL [Apresoline] 100 mg PO TID Furosemide [Lasix] 20 mg PO DAILY Diltiazem HCl [Diltiazem HCl 24Hr ER] 120 mg PO DAILY INSULIN ASPART (NovoLOG) [NovoLOG (formulary)] See Protocol SQ ACHS PRN PRN Reason: Hypoglycemia cloNIDine HCL [Catapres] 0.2 mg PO DAILY PRN PRN Reason: systolic pressure >180 cloNIDine HCL [Catapres] 0.1 mg PO DAILY PRN PRN Reason: dialysis cloNIDine 0.3 MG/24HR PATCH [Catapres-TTS] 1 each TRANSDERM Q7D Carvedilol [Coreg] 25 mg PO BID Discharge Medication List Carvedilol [Coreg] 25 mg PO BID 01/08/20 [History] Diltiazem HCl [Diltiazem HCl 24Hr ER] 120 mg PO DAILY 01/08/20 [History] Furosemide [Lasix] 20 mg PO DAILY 01/08/20 [History] INSULIN ASPART (NovoLOG) [NovoLOG (formulary)] See Protocol SQ ACHS PRN 01/08/20 [History] Insulin Glargine,Hum.rec.anlog [Toujeo Solostar] 30 units SQ DAILY 01/08/20 [History] cloNIDine 0.3 MG/24HR PATCH [Catapres-TTS] 1 each TRANSDERM Q7D 01/08/20 [History] cloNIDine HCL [Catapres] 0.1 mg PO DAILY PRN 01/08/20 [History] cloNIDine HCL [Catapres] 0.2 mg PO DAILY PRN 01/08/20 [History] hydrALAZINE HCL [Apresoline] 100 mg PO TID 01/08/20 [History] minoxidiL [Minoxidil] 2.5 mg PO DAILY 01/08/20 [History] Follow up Appointment(s)/Referral(s): Nonstaff,Physician [REFERRING] - 1-2 days Patient Instructions/Handouts: Chronic Kidney Disease (DC), Hypoglycemia in a Person with Diabetes (DC) Activity/Diet/Wound Care/Special Instructions: diet as tolerated DIABETES DIET activity limited until seen by DR. Vasquez Disposition: HOME SELF-CARE
[2020-01-10 11:29] LABS: Glucose,Whole Blood 424 mg/dL (75-99)
[2020-01-10 11:45] VITALS: BP 163/90; PULSE 87; RESP 18; TEMP 97.4
[2020-01-10] MEDS ORDERED: INSULIN ASPART (NovoLOG) 100 UNIT/ML VIAL SQ ONE (11:51)
[2020-01-10 12:55] VITALS: BMI 29.4
== END 2020-01-10 12:11 | disposition home or self-care (01) ==
LOC: EC 17:27 → 6NMEDSUR 18:08
PROVIDERS: ADMIT Internal Medicine; ATTEND Internal Medicine
DX: E11.649 Type 2 diabetes mellitus with hypoglycemia without coma (principal); E11.22 Type 2 diabetes mellitus with diabetic chronic kidney disease; I12.0 Hypertensive chronic kidney disease with stage 5 chronic kidney disease or end stage renal disease; N18.6 End stage renal disease; D63.1 Anemia in chronic kidney disease; E61.1 Iron deficiency; E87.1 Hypo-osmolality and hyponatremia; F31.9 Bipolar disorder, unspecified; F41.9 Anxiety disorder, unspecified; Z79.899 Other long term (current) drug therapy; Z87.891 Personal history of nicotine dependence; Z99.2 Dependence on renal dialysis; Z95.828 Presence of other vascular implants and grafts; E66.9 Obesity, unspecified; Z68.29 Body mass index [BMI] 29.0-29.9, adult; Z20.828 Contact with and (suspected) exposure to other viral communicable diseases; Z76.82 Awaiting organ transplant status; Z79.4 Long term (current) use of insulin; Z91.048 Other nonmedicinal substance allergy status; Z91.15 Patient's noncompliance with renal dialysis
CPT/HCPCS: 96366 ×3; 96375 ×2; 96365; 99285; 36415; 80053; 82728 ×2; 83540; 83550; 83605; 83615; 83735; 85025; 86140; 86706; 87340; 87040; 83036; 84145; 87635; 90970; G0378 ×3; S0139 ×2; J2405; C9113; 90935

== ENCOUNTER 2020-01-14 04:22 | Emergency (ER) | payer MEDICARE, OTHER ==
[2020-01-14 04:29] LABS: Glucose,Whole Blood <20 mg/dL (75-99)
[2020-01-14] MEDS ORDERED: SODIUM CHLORIDE 0.9% 1,000 ML IV STA (04:31)
[2020-01-14] MEDS ORDERED: LABETALOL 5 MG/ML VIAL MDV IVP STA (04:31)
[2020-01-14] MEDS ORDERED: DEXTROSE 5%-0.45% NACL 1,000 ML IV ONE (04:31)
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
[2020-01-14 04:40] VITALS: RESP 18
[2020-01-14 04:46] LABS: Glucose,Whole Blood 122 mg/dL (75-99)
[2020-01-14 04:47] LABS: Basophils # (A) 0.1 k/uL (0-0.2); Basophils % (A) 1 %; Eosinophils # (A) 0.6 k/uL (0-0.7); Eosinophils % (A) 9 %; HCT 30.5 % (39.0-53.0); HGB 9.9 gm/dL (13.0-17.5); Lymphocytes # (A) 1.7 k/uL (1.0-4.8); Lymphocytes % (A) 25 %; MCH 28.9 pg (25.0-35.0); MCHC 32.3 g/dL (31.0-37.0); MCV 89.5 fL (80.0-100.0); Mean Platelet Volume 7.2; Monocytes # (A) 0.7 k/uL (0-1.0); Monocytes % (A) 10 %; Neutrophils # (A) 3.7 k/uL (1.3-7.7); Neutrophils % (A) 54 %; Platelet Count 369 k/uL (150-450); RBC 3.41 m/uL (4.30-5.90); RDW 14.3 % (11.5-15.5); WBC 6.9 k/uL (3.8-10.6)
[2020-01-14 04:56] LABS: Partial Thromboplastin Time 23.5 sec (22.0-30.0); Prothrombin Time 10.3 sec (9.0-12.0)
[2020-01-14 04:58] LABS: ALT 15 U/L (4-49); AST 23 U/L (17-59); Acetaminophen <10.0 ug/mL; African American GFR (CKD) 7 (>60 ml/min/1.73 sqM); Albumin 3.4 g/dL (3.5-5.0); Alcohol <10 mg/dL; Alkaline Phosphatase 64 U/L (38-126); Anion Gap 12 mmol/L; Blood Urea Nitrogen 63 mg/dL (9-20); Calcium 8.9 mg/dL (8.4-10.2); Carbon Dioxide 30 mmol/L (22-30); Chloride 96 mmol/L (98-107); Creatine Kinase 208 U/L (55-170); Magnesium 2.3 mg/dL (1.6-2.3); Non-African American GFR(CKD) 6 (>60 ml/min/1.73 sqM); Phosphorus 8.6 mg/dL (2.5-4.5); Potassium 3.7 mmol/L (3.5-5.1); Salicylate <1.0 mg/dL; Sodium 138 mmol/L (137-145); Total Bilirubin 0.4 mg/dL (0.2-1.3); Total Protein 6.4 g/dL (6.3-8.2)
--- NOTE | 2020-01-14 05:17 | CT ---
EXAM: CT Head Without Intravenous Contrast CLINICAL HISTORY: ITS.REASON CT Reason: weakness TECHNIQUE: Axial computed tomography images of the head/brain without intravenous contrast. CTDI is 49.27 mGy and DLP is 1143.4 mGy-cm. This CT exam was performed using one or more of the following dose reduction techniques: automated exposure control, adjustment of the mA and/or kV according to patient size, and/or use of iterative reconstruction technique. COMPARISON: Compared to 01/08/2020. FINDINGS: Brain: No abnormal extra-axial collection. No hemorrhage. Midline shift: No midline shift or mass-effect. Ventricles: The ventricular system is age appropriate. Bones/joints: Calvarium is unremarkable. No acute fracture. Soft tissues: Unremarkable. Sinuses: Mild to moderate chronic ethmoid sinusitis. Mastoid air cells: Mastoid air cells are well pneumatized. IMPRESSION: 1. No acute intracranial pathology is detected. 2. If there is concern for etiology such as early acute lacunar infarcts, magnetic resonance imaging of the brain with diffusion-weighted sequences should be performed for follow-up.
[2020-01-14 05:18] LABS: Glucose <20 mg/dL (74-99)
[2020-01-14 05:26] LABS: Glucose,Whole Blood 53 mg/dL (75-99)
[2020-01-14 05:45] LABS: Glucose,Whole Blood 56 mg/dL (75-99)
[2020-01-14] MEDS ORDERED: cloNIDine HCL 0.1 MG TAB PO STA (06:03)
[2020-01-14 06:08] LABS: Glucose,Whole Blood 93 mg/dL (75-99)
[2020-01-14 06:14] VITALS: TEMP 98
[2020-01-14 06:49] LABS: Glucose,Whole Blood 126 mg/dL (75-99)
--- NOTE | 2020-01-14 07:15 | XR ---
EXAMINATION TYPE: XR chest 1V DATE OF EXAM: 01/14/2020 COMPARISON: 06/14/2018 HISTORY: Weakness TECHNIQUE: Single frontal view of the chest is obtained. FINDINGS: Right-sided dialysis catheter seen with no sizable pneumothorax or pleural effusion. Heart size prominent. Coarsened interstitium is new from prior exam. Heart mildly enlarged IMPRESSION: Interval development of a diffuse interstitial process correlate for CHF versus intersti tial pneumonia.
[2020-01-14 09:12] VITALS: BP 157/87; PULSE 82
== END 2020-01-14 09:10 | disposition home or self-care (01) ==
LOC: EC 04:22
DX: R56.9 Unspecified convulsions (principal); E11.649 Type 2 diabetes mellitus with hypoglycemia without coma; I12.0 Hypertensive chronic kidney disease with stage 5 chronic kidney disease or end stage renal disease; E11.22 Type 2 diabetes mellitus with diabetic chronic kidney disease; N18.5 Chronic kidney disease, stage 5; F41.9 Anxiety disorder, unspecified; F31.9 Bipolar disorder, unspecified; Z79.899 Other long term (current) drug therapy; Z79.4 Long term (current) use of insulin; Z91.048 Other nonmedicinal substance allergy status; Z96.60 Presence of unspecified orthopedic joint implant; Z87.891 Personal history of nicotine dependence; Z99.2 Dependence on renal dialysis
CPT/HCPCS: 36415; 93005; 86900; 86901; 80053; 82550; 83605; 83735; 84100; 84443; 84484; 85025; 85610; 85730; 86850; 87040; 83520; 71045; 70450; 99285; 96360; G0480 ×2; 80320; 80329